=== PATIENT | female | born 1955 | race African-American/Black ===

== ENCOUNTER → 2016-12-26 | Outpatient (CLI) | payer OTHER ==
--- NOTE | 2016-12-26 13:23 | US ---
EXAMINATION TYPE: US transvaginal DATE OF EXAM: 12/26/2016 COMPARISON: NONE CLINICAL HISTORY: N84.1 CERVICAL POLYP. Patient is unaware of reason for TV US today. Patient stated LMP one year ago, prior cervical surgery years ago; TECHNIQUE: Transvaginal (TV) Date of LMP: one year ago. EXAM MEASUREMENTS: Uterus: 6.3 x7.8 x 4.3cm cm Endometrial Stripe: 0.7? cm Right Ovary: 1.7 x 1.0 x 0.6 cm Left Ovary: 2.7 x 1.0 x 0.9 cm 1. Uterus: Retroverted; couple of Nabothian cysts in CX and = 0.7 x 0.6 x 0.5cm; multiple uterine fi broids and too numerous to count with multiple appearing as subserosal. 2. Endometrium: thickness is wnl post menopause 3. Right Ovary: small follicles; multiple hyperechoic foci (calcifications) at periphery 4. Left Ovary: small follicles 5. Bilateral Adnexa: wnl 6. Posterior cul-de-sac: small amount of free fluid in cul de sac = 0.9 x 1.7 x 0.8cm. Uterus is retroverted in shape with markedly heterogeneous appearance and lobulated contour. Nabothia n cysts are seen in the cervix. Multiple fibroids are suspected. Endometrium is not well visualized o n images saved due to marked heterogeneity. Tiny amount free fluid is seen in pelvis before scanning left ovary. Ovaries are small in size consistent with post menopausal age IMPRESSION: Small amount of free fluid is seen in pelvic cul-de-sac. Heterogeneous lobulated prominen t uterus is felt most likely product of multiple fibroids.
== END | disposition home or self-care (01) ==
LOC: RADUSWWP 10:29
PROVIDERS: ATTEND Obstetrics & Gynecology
DX: N84.1 Polyp of cervix uteri (principal)
CPT/HCPCS: 76830

== ENCOUNTER → 2017-01-21 | Outpatient (CLI) | payer SELFPAY ==
--- NOTE | 2017-01-21 13:01 | MM ---
Reason for exam: additional evaluation requested from abnormal screening. Last mammogram was performed less than 1 month ago. History: Patient is postmenopausal. Family history of breast cancer in mother at age 70. Physical Findings: Nurse Summary: 0.5cm nodule in the right breast at 12 o'clock (nurse kp). MG Work Up Mamm w CAD BILAT Bilateral spot compression CC, spot compression MLO, and LM view(s) were taken. Prior study comparison: January 15, 2017, bilateral MG screening mammo w CAD. The breast tissue is heterogeneously dense. This may lower the sensitivity of mammography. The previously described bilateral focal asymmetry and left asymmetries persist on additional views. Ultrasound will be performed. These results were verbally communicated with the patient and result sheet given to the patient on 01/21/17. ASSESSMENT: Incomplete: need additional imaging evaluation, BI-RAD 0 RECOMMENDATION: Ultrasound of both breasts.
--- NOTE | 2017-01-21 13:07 | USB ---
Reason for exam: additional evaluation requested from abnormal screening. History: Patient is postmenopausal. Family history of breast cancer in mother at age 70. US Breast Workup Limited MASSIEL Right breast ultrasound demonstrates a 0.7 x 0.3 x 0.5cm oval, hypoechoic lesion at 11 o'clock for which a biopsy is recommended, a 0.3 x 0.4 x 0.4cm oval lesion too small to characterize at 10 o'clock and a 1.1 x 0.3 x 1.1cm oval, mixed lesion at 9 o'clock. Left breast ultrasound includes all four quadrants, the retroareolar region and axilla. Finding demonstrates a 0.9 x 0.3 x 0.6cm oval, mixed lesion at 2 o'clock, a 0.4 x 0.3 x 0.5cm oval lesion too small to characterize at 3 o'clock, anechoic with well defined post wall and increased through transmission, a 1.0 x 0.4 x 0.9cm oval, hypoechoic lesion at 6 o'clock for which a biopsy is recommended and a 0.6 x 0.3 x 0.5cm cystic, benign lesion at 11 o'clock. These results were verbally communicated with the patient and result sheet given to the patient on 01/21/17. ASSESSMENT: Suspicious, BI-RAD 4 RECOMMENDATION: Ultrasound core biopsy of both breasts. (Recommend biopsy of manufacturers service representative bilateral masses with recommendation of remaining masses on rad pathology correlation) (x 2) Called Dr. Denson with mammographic findings and has scheduled an appointment for the patient for 01/22/17 at 1:[address] Judd. PRELIMINARY REPORT CALLED AND FAXED TO DR. JUDD ON 01/21/17.
== END | disposition home or self-care (01) ==
LOC: RADMAMWWP 09:50
PROVIDERS: ATTEND Obstetrics & Gynecology
DX: R92.8 Other abnormal and inconclusive findings on diagnostic imaging of breast (principal)
CPT/HCPCS: 76642; G0204

== ENCOUNTER → 2017-02-13 | Outpatient (CLI) | payer OTHER ==
--- NOTE | 2017-02-13 16:37 | CT ---
EXAMINATION TYPE: CT brain wo/w con DATE OF EXAM: 02/13/2017 COMPARISON: Unavailable HISTORY: Nontraumatic Intracranial Hemorrhage. 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 CONTRAST: CT scan of the head is performed with IV Contrast, patient injected with 100 mL of Omnipaque 300. FINDINGS: There is a right frontal craniotomy with ventricular shunt tubing which extends to the level of the t hird ventricle abutting the left lateral wall and coursing from the right. Encephalomalacia present i n the left frontal lobe. Extra-axial phenomenon the frontal horn of the left lateral ventricle greate r than right, some encephalomalacia also present in the right frontal lobe. [place] is present over the right parietal location. Craniotomies noted in the left frontal region laterally as well as an a dditional right frontal craniotomy. There is extensive streak artifact due to aneurysm clipping at th e supraclinoid left internal carotid artery location, cerebral vascular calcifications are present. V ertebrobasilar system, internal carotid arteries show enhancement. No evident aneurysm on the standar d contrast enhanced CT. The left and right parietal regions posteriorly shows some small areas of encephalomalacia. There is minimal amount of calcification along the dura at these locations. IMPRESSION: Postop, postprocedural changes as described with areas of encephalomalacia. If comparison CT is available) addendum report can be issued.
== END | disposition home or self-care (01) ==
LOC: RADCTMAIN 15:01
PROVIDERS: ATTEND Psychiatry & Neurology Neurology
DX: G93.89 Other specified disorders of brain (principal); Z98.890 Other specified postprocedural states
CPT/HCPCS: 70470; Q9967

== ENCOUNTER 2017-05-17 14:01 | Inpatient (IN) | payer MEDICAID, OTHER ==
--- NOTE | 2017-05-17 15:04 | ED ---
Psych HPI - General Chief Complaint: Psychiatric Symptoms Stated Complaint: Mental Health Eval Time Seen by Provider: 05/17/17 14:23 Source: patient Mode of arrival: ambulatory - History of Present Illness Initial Comments: 31 years old female complaining about hearing voices as she spent think about harming herself for the last 2 days she said she thought about cutting her wrist Family preventive him from doing the CT denies any alcohol or street drugs she does see psychologist pretty regularly last time she seen her psychologist there was one month ago she lost her son after tragic incidents 6 years ago which she said she still said it feels like it was yesterday. Denies any medical complaints review of system is unremarkable - Related Data Home Medications Medication Instructions Recorded Confirmed Atorvastatin [Lipitor] 80 mg PO HS 05/17/17 05/17/17 Hydrochlorothiazide [Hydrodiuril] 25 mg PO DAILY 05/17/17 05/17/17 Lisinopril [Zestril] 20 mg PO DAILY 05/17/17 05/17/17 Phenytoin Sodium Extended 100 mg PO TID 05/17/17 05/17/17 [Dilantin] Allergies Allergy/AdvReac Type Severity Reaction Status Date / Time No Known Allergies Allergy Verified 05/17/17 14:05 Review of Systems ROS Statement: Those systems with pertinent positive or pertinent negative responses have been documented in the HPI. ROS Other: All systems not noted in ROS Statement are negative. Past Medical History Past Medical History: Hypertension, Seizure Disorder History of Any Multi-Drug Resistant Organisms: None Reported Past Surgical History: No Surgical Hx Reported Past Psychological History: Depression, Schizophrenia Smoking Status: Never smoker Past Alcohol Use History: None Reported Past Drug Use History: None Reported General Exam - General Exam Comments Initial Comments: General: The patient is awake and alert, in no distress, and does not appear acutely ill. Skin: Skin is warm and dry and no rashes or lesions are noted. Eye: Pupils are equal, round and reactive to light, extra-ocular movements are intact; there is normal conjunctiva bilaterally. Ears, nose, mouth and throat: There are moist mucous membranes and no oral lesions. Neck: The neck is supple, there is no tenderness or JVD. Cardiovascular: There is a regular rate and rhythm. No murmur, rub or gallop is appreciated. Respiratory: To auscultation bilateral, no wheezing no rhonchi no distress respiratory laughlin noticed Gastrointestinal: Soft, non-distended, non-tender abdomen without masses or organomegaly noted. There is no rebound or guarding present. Bowel sounds are unremarkable. Back: There is no tenderness to palpation in the midline. There is no obvious deformity. Musculoskeletal: Normal ROM, no tenderness, There is no pedal edema. There is no calf tenderness or swelling. No cords were appreciated. Neurological: CN II-XII intact, Cranial nerves III through XII are intact. There are no obvious motor or sensory deficits. Coordination appears grossly intact. Speech is normal. Psychiatric: Cooperative, admits to suicidal ideation that she wants to cut her wrist but denies any homicidal ideation Limitations: no limitations Course Vital Signs 05/17/17 05/17/17 14:03 16:19 Temperature 98.0 F Pulse Rate 85 Respiratory 20 16 Rate Blood Pressure 120/77 O2 Sat by Pulse 99 Oximetry He stated no alcohol Her bat was negative will go ahead and consult [facility] Medical Decision Making - Lab Data Lab Results 05/17/17 Range/Units 16:00 Urine Opiates Screen Not Detected (NotDetected) Ur Oxycodone Screen Not Detected (NotDetected) Urine Methadone Screen Not Detected (NotDetected) Ur Propoxyphene Screen Not Detected (NotDetected) Ur Barbiturates Screen Not Detected (NotDetected) U Tricyclic Antidepress Not Detected (NotDetected) Ur Phencyclidine Scrn Not Detected (NotDetected) Ur Amphetamines Screen Not Detected (NotDetected) U Methamphetamines Scrn Not Detected (NotDetected) U Benzodiazepines Scrn Not Detected (NotDetected) Urine Cocaine Screen Not Detected (NotDetected) U Marijuana (THC) Screen Not Detected (NotDetected) Disposition Clinical Impression: Suicidal ideation Disposition: ADMITTED IP TO THIS HOSP Condition: Good
[2017-05-17 16:55] LABS: Amphetamine Screen,Urine Not Detected (NotDetected); Barbiturate Screen,Urine Not Detected (NotDetected); Benzodiazepines Screen,Urine Not Detected (NotDetected); Cocaine Screen,Urine Not Detected (NotDetected); Methadone Screen, Urine Not Detected (NotDetected); Opiate Screen,Urine Not Detected (NotDetected); Oxycodone Screen, Urine Not Detected (NotDetected); Phencyclidine Screen,Urine Not Detected (NotDetected); Tricyclic Antidepressant,Urine Not Detected (NotDetected); Urn Cannabinoid Scrn Not Detected (NotDetected)
[2017-05-17] MEDS ORDERED: ACETAMINOPHEN TAB 325 MG TAB PO PRN (20:27)
[2017-05-17] MEDS ORDERED: LORazepam 1 MG TAB PO PRN (20:27)
[2017-05-17] MEDS ORDERED: MAGNESIUM HYDROXIDE 2,400 MG/10 ML CUP PO PRN (20:27)
[2017-05-17] MEDS ORDERED: MAG HYDROX/AL HYDROX/SIMETH 30 ML CUP PO PRN (20:27)
[2017-05-17] MEDS: PHENYTOIN SODIUM EXTENDED 100 MG CAP PO SCH (20:56)
[2017-05-17] MEDS: ATORVASTATIN 80 MG TAB PO SCH (20:56)
[2017-05-17] MEDS ORDERED: ZOLPIDEM 5 MG TAB PO PRN (21:00)
--- NOTE | 2017-05-17 21:09 | P.MDCNMH ---
History of Present Illness H&P Date: 05/17/17 Chief Complaint: Hallucinations 61 years old female presented to the emergency department complaining about hearing voices. She is not sure what the voices are saying to her. She denied having any suicidal ideation but did admit to have homicidal ideations towards her sister. Because of that she tries to avoid socializing with her. Patient admitted that she has been more depressed lately. She never had hallucinations in the past. Never attempted suicide. She attributes these hallucinations to the memory of her son who was killed with a gunshot. Patient also complained that she has not been sleeping lately. She told the emergency room physician that she was thinking about harming herself for the last 2 days, she said she thought about cutting her wrist. She denied any recent illness, no chest pain or shortness of breath, no fevers or chills, no abdominal pain, no nausea or vomiting, no diarrhea, no urinary symptoms. Review of Systems 12 point review of system performed, negative except hpi. Past Medical History Past Medical History: Hypertension, Seizure Disorder Additional Past Medical History / Comment(s): History of brain aneurysm status post shunt placement History of Any Multi-Drug Resistant Organisms: None Reported Past Surgical History: No Surgical Hx Reported Past Psychological History: Depression, Schizophrenia Smoking Status: Never smoker Past Alcohol Use History: None Reported Past Drug Use History: None Reported Medications and Allergies Home Medications Medication Instructions Recorded Confirmed Type Atorvastatin [Lipitor] 80 mg PO HS 05/17/17 05/17/17 History Hydrochlorothiazide [Hydrodiuril] 25 mg PO DAILY 05/17/17 05/17/17 History Lisinopril [Zestril] 20 mg PO DAILY 05/17/17 05/17/17 History Phenytoin Sodium Extended 100 mg PO TID 05/17/17 05/17/17 History [Dilantin] Allergies Allergy/AdvReac Type Severity Reaction Status Date / Time No Known Allergies Allergy Verified 05/17/17 14:05 Physical Exam Vitals: Vital Signs Temp Pulse Resp BP Pulse Ox 05/17/17 17:47 98.6 F 67 18 165/72 97 05/17/17 16:19 16 05/17/17 14:03 98.0 F 85 20 120/77 99 Intake and Output 05/17/17 05/17/17 05/17/17 06:59 14:59 22:59 Other: Weight 63.503 kg Constitutional: No acute distress, conversant, pleasant Eyes:Anicteric sclerae, moist conjunctiva, no lid-lag, PERRLA, ENMT: Oropharynx clear, no erythema, exudates Neck: Supple, FROM, no masses, or JVD, No carotid bruits, No thyromegaly Lungs: Clear to auscultation, Clear to percussion, Normal respiratory effort, no accessory muscle use Cardiovascular: Heart regular in rate and rhythm, No murmurs, gallops, or rubs, No peripheral edema Abdominal: Soft, Nontender, no guarding, rebound or rigidity, Normoactive bowel sounds, No hepatomegaly, No splenomegaly, No palpable mass Skin: Normal temperature, tone, texture, turgor, no induration, No subcutaneous nodules, No rash, lesions, No ulcers Extremities: No digital cyanosis, No clubbing, Pedal pulses intact and symmetrical, Radial pulses intact and symmetrical, No calf tenderness Psychiatric: Alert and oriented to person, place and time Neuro: Muscles Strength 5/5 in all 4 extremities, Sensation to light touch grossly present throughout, Cranial nerves II-XII grossly intact, no focal sensory deficits Cranial Nerve Examination - Cranial Nerves Cranial Nerve II- Optic: Intact Cranial Nerve III- Oculomotor: Intact Cranial Nerve IV- Trochlear: Intact Cranial Nerve V- Trigeminal: Intact Cranial Nerve - Abducens: Intact Cranial Nerve VII- Facial: Intact Cranial Nerve VIII- Auditory: Intact Cranial Nerve IX- Glossopharyngeal: Intact Cranial Nerve X- Vagus: Intact Cranial Nerve XI- Accessory: Intact Cranial Nerve XII- Hypoglossal: Intact Assessment and Plan Plan: #1 New-onset auditory hallucinations/depression/schizophrenia Management per psychiatry #2 Smoking Counseled to quit Nicotine patch #3 Essential hypertension Continue lisinopril and HCTZ Check CBC, CMP, TSH, lipid profile #4 History of brain aneurysm status post shunt placement Continue Dilantin
--- NOTE | 2017-05-18 00:33 | P.HP ---
Psychiatric H&P - . H&P Date: 05/18/17 History & Physical: Allergies Allergy/AdvReac Type Severity Reaction Status Date / Time No Known Allergies Allergy Verified 05/17/17 14:05 Vital Signs Temp 98.6 F 05/17/17 17:47 Pulse 67 05/17/17 17:47 Resp 18 05/17/17 17:47 BP 165/72 05/17/17 17:47 Pulse Ox 97 05/17/17 17:47 Intake & Output 05/17/17 05/17/17 05/18/17 06:59 18:59 06:59 Weight 63.503 kg Laboratory Last Values Urine Opiates Screen Not Detected (NotDetected) 05/17/17 16:00 Ur Oxycodone Screen Not Detected (NotDetected) 05/17/17 16:00 Urine Methadone Screen Not Detected (NotDetected) 05/17/17 16:00 Ur Propoxyphene Screen Not Detected (NotDetected) 05/17/17 16:00 Ur Barbiturates Screen Not Detected (NotDetected) 05/17/17 16:00 U Tricyclic Antidepress Not Detected (NotDetected) 05/17/17 16:00 Ur Phencyclidine Scrn Not Detected (NotDetected) 05/17/17 16:00 Ur Amphetamines Screen Not Detected (NotDetected) 05/17/17 16:00 U Methamphetamines Scrn Not Detected (NotDetected) 05/17/17 16:00 U Benzodiazepines Scrn Not Detected (NotDetected) 05/17/17 16:00 Urine Cocaine Screen Not Detected (NotDetected) 05/17/17 16:00 U Marijuana (THC) Screen Not Detected (NotDetected) 05/17/17 16:00 05/18/17 15:14 Identifying Information Patient is 61 year old woman. She is single. She says she is currently living with her daughter temporarily. She stated she wants help in finding her a place like senior apartment. Her source of income is social security. Cheif complaint Hearing voices and not being able to sleep over the past one month. History of presenting illness Patient reports hearing voices telling her to man, man. She denies visual hallucinations. She reports feeling paranoid especially when it gets dark. She is paranoid that some one might come and get her or will follow her. She reports feeling sad about her current situation. She reports feeling sad about the of her son. She says her son got killed six years ago in [place], but states it feels like as it had happened yesterday.She states she is very close to her son and still grieving the of her son. She denies current suicidal or homicidal ideations. She says she loves herself and will not do anything to harm herself. Past psychiatric treatment history Patient reports being started on psychiatric medications following her first hospitlaization around the age of 26 years. She reports three psychiatric hopitlizations at [facility] and [facility] on [address]. Her last hospitalization was in . She states most of her hospitalizations were due to stressful relationship and paranoia. She reports being diagnosed with paranaoid schizophrenia. She reports to have recieved outpatient treatment through [facility] in but none since then. She does not know the names of medications she has received. Denies suicidal or homicidal history. Substance use history Denies use of illicit drugs Medical history History of hypertension, seizures, Jam[place] aneurysm with surgical repair 20 years ago at [facility]. Legal history Denies Family history Says her twin sister is also diagnosed with paranoid schizophrenia. Social history Born in [place], [place]. Raised by mother. Denies history of abuse. She reports having two sisters. Graduated from [employer]. Worked in fast food restaurants. Last job was in . Mental status exam Patient is 61 year old woman. She was dressed appropriately. She is pleasant and cooperative. She maintains good eye contact. No psychomotor agitation or retardation noted. Her speech and thought process are goal directed. Her mood is reported as sad and affect constricted. She reports auditory hallucinations and paranoia. No visual hallucinations. She denies current suicidal or homicidal ideations. She is alert and oriented to time, place and person. Her insight and judgment are fair. Assessment Paranoid Schizophrenia Plan She was admitted voluntarily to the inpatient mental health unit through ER. Will start her on seroquel 25mg po qhs for auditory halluciantions and paranoia. Dose to be adjusted depending on response and tolerability. History and physical exam by medicine Routine labs Encourage participation in unit activities and group therapies. Monitor for symptoms and progress Individualized treatment plan development and discharge plan
[2017-05-18 07:23] VITALS: RESP 16
[2017-05-18 08:49] LABS: Basophils % (A) 0 %; Eosinophils # (A) 0.2 k/uL (0-0.7); Eosinophils % (A) 3 %; HCT 44.8 % (34.0-46.0); HGB 14.5 gm/dL (11.4-16.0); Lymphocytes # (A) 2.3 k/uL (1.0-4.8); Lymphocytes % (A) 40 %; MCH 28.3 pg (25.0-35.0); MCHC 32.4 g/dL (31.0-37.0); MCV 87.5 fL (80.0-100.0); Mean Platelet Volume 7.3; Monocytes # (A) 0.3 k/uL (0-1.0); Monocytes % (A) 5 %; Neutrophils # (A) 2.8 k/uL (1.3-7.7); Neutrophils % (A) 49 %; Platelet Count 325 k/uL (150-450); RBC 5.12 m/uL (3.80-5.40); RDW 12.9 % (11.5-15.5); WBC 5.8 k/uL (3.8-10.6)
[2017-05-18] MEDS ORDERED: NICOTINE 14MG/24HR PATCH TRANSDERM SCH (09:00)
[2017-05-18 09:01] LABS: ALT 16 U/L (9-52); AST 20 U/L (14-36); Albumin 4.7 g/dL (3.5-5.0); Alkaline Phosphatase 73 U/L (38-126); Anion Gap 12 mmol/L; Blood Urea Nitrogen 17 mg/dL (7-17); Calcium 10.4 mg/dL (8.4-10.2); Carbon Dioxide 30 mmol/L (22-30); Chloride 98 mmol/L (98-107); Cholesterol 199 mg/dL (<200); Glucose 94 mg/dL (74-99); HDL Cholesterol 56 mg/dL (40-60); LDL Cholesterol,Calculated 125 mg/dL (0-99); Potassium 4.6 mmol/L (3.5-5.1); Sodium 140 mmol/L (137-145); Total Bilirubin 0.7 mg/dL (0.2-1.3); Total Protein 7.9 g/dL (6.3-8.2); Triglycerides 90 mg/dL (<150)
[2017-05-18] MEDS: HYDROCHLOROTHIAZIDE 25 MG TAB PO SCH (10:44)
[2017-05-18] MEDS: PHENYTOIN SODIUM EXTENDED 100 MG CAP PO SCH ×3 (10:44→21:04)
[2017-05-18] MEDS: LISINOPRIL 20 MG TAB PO SCH (10:44)
[2017-05-18 19:50] LABS: Hemoglobin A1C 5.8 % (4.0-6.0)
[2017-05-18] MEDS ORDERED: QUEtiapine 25 MG TAB PO SCH (21:00)
[2017-05-18] MEDS: ATORVASTATIN 80 MG TAB PO SCH (21:04)
[2017-05-18] MEDS: NICOTINE 21MG/24HR PATCH TRANSDERM SCH (21:50)
[2017-05-19] MEDS: PHENYTOIN SODIUM EXTENDED 100 MG CAP PO SCH ×3 (09:29→21:59)
[2017-05-19] MEDS: NICOTINE 21MG/24HR PATCH TRANSDERM SCH (09:29)
[2017-05-19] MEDS: LISINOPRIL 20 MG TAB PO SCH (09:29)
[2017-05-19] MEDS: HYDROCHLOROTHIAZIDE 25 MG TAB PO SCH (09:29)
--- NOTE | 2017-05-19 13:49 | P.PN ---
Progress Note - Text Progress Note Date: 05/19/17 Interval History: Patient is a 61-year-old female who was admitted due to auditory hallucinations and paranoia. Patient reports today that she continues to hear voices but only hearing her name being called out. She denies that she is feeling paranoid or suspicious of people. Patient states that she dislikes her daughter's partner, she states that she's been living with her daughter for the last 88-9 months having lived with her sister before that and an aunt prior to that. Patient states that her daughter's partner is there only on weekends but that the 2 of them do not get along. She denies making any threats to this person. Patient states that she wants to get her own place. She reports having a brain aneurysm in 1996 that was in the right frontal area and states she has difficulty with her memory since that time. Patient reports that she slept fairly well last evening. Mental Status: Appearance/Attitude: Patient is appropriately dressed, makes intermittent eye contact and is cooperative. Behavior: Patient does not display any psychomotor agitation or retardation. Speech/Language: Patient's speech is spontaneous and normal volume and rhythm and she is coherent. Thought Process: Patient is goal-directed, no evidence of loose association or flight of ideas and she is not circumstantial or tangential. Thought Content: She reports continued auditory hallucinations no visual hallucinations and states that she is not feeling suspicious or paranoid. She denies making threats toward her daughter's partner. Patient states that she is sleeping and eating well. She reports that she needs housing and wants to live on her own, the patient was living with an aunt and a sister prior to her moving in with her daughter 8-9 months ago. Suicidal/Homicidal Ideation: Patient denies any current suicidal or homicidal ideation Sensorium/Cognition: Patient is alert and oriented to person, place, and time and she states that she has difficulties with her memory since the aneurysm Mood/Affect: Patient's mood is slightly irritable and her affect is slightly blunted Insight/Judgment: Patient's insight and judgment are fair Assessment: Patient was admitted with a history of psychotic symptoms a number of years ago but no treatment for at least the last 20 years. Patient has recently moved in with her daughter and is not getting along with her daughter' s partner who lives with them on the weekends. Patient is reported to have made threats toward this person during the weekend to staff. Patient states that she continues to hear voices but denies any paranoid ideation and denies making threats to her daughter's partner. Patient is status post brain aneurysm in 1996 in the right frontal area and states she has memory difficulty secondary to this. Plan: We'll increase patient's Seroquel to 50 mg at bedtime and continue to adjust the dose to target her psychotic symptoms. Patient's discharge housing maintenance up in the air as the patient does not want to return to live with her daughter. Patient requires hospitalization to further stabilize her psychotic symptoms. A duty to warn will be done for the daughter's partner.
[2017-05-19 15:08] LABS: Appearance,Urine Clear (Clear); Bilirubin,Urine Negative (Negative); Blood,Urine Negative (Negative); Color,Urine Yellow; Glucose,Urine (UA) Negative (Negative); Ketones,Urine Negative (Negative); Leukocyte Esterase,Urine Negative (Negative); Nitrite,Urine Negative (Negative); Protein,Urine Negative (Negative); Urobilinogen,Urine <2.0 mg/dL (<2.0)
[2017-05-19 15:21] LABS: Amphetamine Screen,Urine Not Detected (NotDetected); Barbiturate Screen,Urine Detected (NotDetected); Benzodiazepines Screen,Urine Detected (NotDetected); Cocaine Screen,Urine Not Detected (NotDetected); Methadone Screen, Urine Not Detected (NotDetected); Opiate Screen,Urine Not Detected (NotDetected); Oxycodone Screen, Urine Not Detected (NotDetected); Phencyclidine Screen,Urine Not Detected (NotDetected); Tricyclic Antidepressant,Urine Not Detected (NotDetected); Urn Cannabinoid Scrn Not Detected (NotDetected)
[2017-05-19] MEDS: ATORVASTATIN 80 MG TAB PO SCH (21:59)
[2017-05-19] MEDS: QUEtiapine 50 MG TAB PO SCH (21:59)
[2017-05-20] MEDS: NICOTINE 21MG/24HR PATCH TRANSDERM SCH (09:09)
[2017-05-20] MEDS: PHENYTOIN SODIUM EXTENDED 100 MG CAP PO SCH ×3 (09:09→20:55)
[2017-05-20] MEDS: LISINOPRIL 20 MG TAB PO SCH (09:09)
[2017-05-20] MEDS: HYDROCHLOROTHIAZIDE 25 MG TAB PO SCH (09:09)
[2017-05-20 10:05] VITALS: BMI 24.0
--- NOTE | 2017-05-20 12:21 | P.PN ---
Progress Note - Text Progress Note Date: 05/20/17 Interval History: Patient is a 61-year-old female who was seen today and reports that she is no longer hearing voices or feeling suspicious and paranoid. She states that she is not having trouble deciphering what is reality and what is not. She states that she is been given a list of places to look for a place to go to live that she does not want to return to live with her daughter. She states she wants to stay in the area and would even consider going to a [facility]. She states that she receives Social Security disability. Patient states that she slept well last evening and is no longer having any suicidal thoughts and denied any homicidal thoughts. Mental Status: Appearance/Attitude: Patient is appropriately dressed, makes good eye contact and is cooperative. Behavior: Patient does not display any psychomotor agitation or retardation. Speech/Language: Patient's speech is spontaneous and of normal volume and rhythm and she is coherent. Thought Process: Patient is goal-directed there is no evidence of loose association or flight of ideas. Thought Content: Patient denies auditory or visual hallucinations and no delusions or paranoid ideation were elicited. Patient states that she is sleeping and eating well. She reports that she is not having thoughts of suicide nor she thinking of hurting anyone else. Patient discussed her wish to move out and live on her own. Suicidal/Homicidal Ideation: Patient denies any current suicidal or homicidal ideation. Sensorium/Cognition: Patient is alert and oriented to person, place, and time and she reports difficulties with her memory secondary to her brain aneurysm. Mood/Affect: Patient's mood is stable at her affect is appropriate Insight/Judgment: Patient's insight and judgment are fair. Assessment: Patient reports she is feeling better on the medication, no longer hearing voices or feeling paranoid and that she is no longer feeling suicidal. She voiced no homicidal ideation. Patient states that she is sleeping well. She has been attending groups and activities and has been participating. She states that she would like to live on her own when discharged and has a list of contact numbers. She reports no side effects from the medication. Plan: Patient will continue on Seroquel 50 mg at bedtime to target her psychotic symptoms. Patient and I discussed possible discharge later this week and she was encouraged to make phone calls to try to find a place for her to live.
[2017-05-20] MEDS: ATORVASTATIN 80 MG TAB PO SCH (20:54)
[2017-05-20] MEDS: QUEtiapine 50 MG TAB PO SCH (20:54)
[2017-05-21 06:50] VITALS: BP 103/67; PULSE 69; TEMP 98.2
[2017-05-21] MEDS: NICOTINE 21MG/24HR PATCH TRANSDERM SCH (09:18)
[2017-05-21] MEDS: LISINOPRIL 20 MG TAB PO SCH (09:19)
[2017-05-21] MEDS: HYDROCHLOROTHIAZIDE 25 MG TAB PO SCH (09:19)
[2017-05-21] MEDS: PHENYTOIN SODIUM EXTENDED 100 MG CAP PO SCH (09:20)
--- NOTE | 2017-05-21 11:42 | P.DS ---
Providers Date of admission: 05/17/17 17:25 Expected date of discharge: 05/21/17 Attending physician: Tiara Jessica MD Consults: 05/17/17 20:27 Consult Physician Routine Consulting Provider: Dana Cole Consult Reason/Comments: medical management Do you want consulting provider notified?: Already Contacted Primary care physician: [facility] Course: Discharge Diagnosis: Schizophrenia Reason for Admission: Patient is a 61-year-old female who presented to the emergency room with complaints of hearing voices and not being able to sleep. Patient also reported feeling paranoid, feeling that people were trying to hurt her. Patient also had been making threats to her daughter's partner. Patient states that she and her daughter's friend do not get along. Patient has a past history of hospitalization for similar complaints but her last hospitalization was in the the patient has not been taking any psychotropic medications since that time. Patient recently moved to live with her daughter and had been living in the [place] area prior to that with the sister and an aunt. Patient was having difficulty sleeping due to her paranoid ideation at home. Hospital Course: Patient was admitted on a voluntary basis, placed on routine precautions and group and activity therapy were ordered. Patient had routine laboratory studies and medical consultation. Patient was continued on Lipitor hydrochlorothiazide, Zestril and Dilantin for her medical problems. Patient had a brain aneurysm in the right frontal area in the past and reported difficulties with her memory. Patient was placed on Seroquel 25 mg which was titrated to a dose of 50 mg at bedtime. Patient reported that she was sleeping well and was no longer hearing voices or feeling paranoid. Patient was able to discuss wanting to move out on her own if she could find a place but was okay with returning to live with her daughter. She stated that she would just not interact with her daughter's partner when she visited on the weekends. Patient reported no further paranoid ideation and she was attending groups and activities and participating. Patient's Seroquel dose was increased to 50 mg and she reported no side effects. Patient was sleeping and eating well. Patient felt the medication had been beneficial. Patient felt she was ready to return home. Patient had made threats against the daughter's partner and a duty to warn was completed. Allergies tide Allergy (Uncoded 05/18/17 09:25) Rash/Hives Laboratory Last Values WBC 5.8 k/uL (3.8-10.6) 05/18/17 08:21 RBC 5.12 m/uL (3.80-5.40) 05/18/17 08:21 Hgb 14.5 gm/dL (11.4-16.0) 05/18/17 08:21 Hct 44.8 % (34.0-46.0) 05/18/17 08:21 MCV 87.5 fL (80.0-100.0) 05/18/17 08:21 MCH 28.3 pg (25.0-35.0) 05/18/17 08:21 MCHC 32.4 g/dL (31.0-37.0) 05/18/17 08:21 RDW 12.9 % (11.5-15.5) 05/18/17 08:21 Plt Count 325 k/uL (150-450) 05/18/17 08:21 Neutrophils % 49 % 05/18/17 08:21 Lymphocytes % 40 % 05/18/17 08:21 Monocytes % 5 % 05/18/17 08:21 Eosinophils % 3 % 05/18/17 08:21 Basophils % 0 % 05/18/17 08:21 Neutrophils # 2.8 k/uL (1.3-7.7) 05/18/17 08:21 Lymphocytes # 2.3 k/uL (1.0-4.8) 05/18/17 08:21 Monocytes # 0.3 k/uL (0-1.0) 05/18/17 08:21 Eosinophils # 0.2 k/uL (0-0.7) 05/18/17 08:21 Basophils # 0.0 k/uL (0-0.2) 05/18/17 08:21 Sodium 140 mmol/L (137-145) 05/18/17 08:21 Potassium 4.6 mmol/L (3.5-5.1) 05/18/17 08:21 Chloride 98 mmol/L (98-107) 05/18/17 08:21 Carbon Dioxide 30 mmol/L (22-30) 05/18/17 08:21 Anion Gap 12 mmol/L 05/18/17 08:21 BUN 17 mg/dL (7-17) 05/18/17 08:21 Creatinine 0.72 mg/dL (0.52-1.04) 05/18/17 08:21 Est GFR (CKD-EPI)AfAm >90 (>60 ml/min/1.73 sqM) 05/18/17 08:21 Est GFR (CKD-EPI)NonAf >90 (>60 ml/min/1.73 sqM) 05/18/17 08:21 Glucose 94 mg/dL (74-99) 05/18/17 08:[address] Glu mg/dL 120 05/18/17 08:21 Hemoglobin A1c 5.8 % (4.0-6.0) 05/18/17 08:21 Calcium 10.4 mg/dL (8.4-10.2) H 05/18/17 08:21 Total Bilirubin 0.7 mg/dL (0.2-1.3) 05/18/17 08:21 AST 20 U/L (14-36) 05/18/17 08:21 ALT 16 U/L (9-52) 05/18/17 08:21 Alkaline Phosphatase 73 U/L (38-126) 05/18/17 08:21 Total Protein 7.9 g/dL (6.3-8.2) 05/18/17 08:21 Albumin 4.7 g/dL (3.5-5.0) 05/18/17 08:21 Triglycerides 90 mg/dL (<150) 05/18/17 08:21 Cholesterol 199 mg/dL (<200) 05/18/17 08:21 LDL Cholesterol, Calc 125 mg/dL (0-99) H 05/18/17 08:21 HDL Cholesterol 56 mg/dL (40-60) 05/18/17 08:21 TSH 0.993 mIU/L (0.465-4.680) 05/18/17 08:21 Urine Color Yellow 05/19/17 14:57 Urine Appearance Clear (Clear) 05/19/17 14:57 Urine pH 5.0 (5.0-8.0) 05/19/17 14:57 Ur Specific [place] 1.010 (1.001-1.035) 05/19/17 14:57 Urine Protein Negative (Negative) 05/19/17 14:57 Urine Glucose (UA) Negative (Negative) 05/19/17 14:57 Urine Ketones Negative (Negative) 05/19/17 14:57 Urine Blood Negative (Negative) 05/19/17 14:57 Urine Nitrite Negative (Negative) 05/19/17 14:57 Urine Bilirubin Negative (Negative) 05/19/17 14:57 Urine Urobilinogen <2.0 mg/dL (<2.0) 05/19/17 14:57 Ur Leukocyte Esterase Negative (Negative) 05/19/17 14:57 Urine Opiates Screen Not Detected (NotDetected) 05/19/17 14:57 Ur Oxycodone Screen Not Detected (NotDetected) 05/19/17 14:57 Urine Methadone Screen Not Detected (NotDetected) 05/19/17 14:57 Ur Propoxyphene Screen Not Detected (NotDetected) 05/19/17 14:57 Ur Barbiturates Screen Detected (NotDetected) H 05/19/17 14:57 U Tricyclic Antidepress Not Detected (NotDetected) 05/19/17 14:57 Ur Phencyclidine Scrn Not Detected (NotDetected) 05/19/17 14:57 Ur Amphetamines Screen Not Detected (NotDetected) 05/19/17 14:57 U Methamphetamines Scrn Not Detected (NotDetected) 05/19/17 14:57 U Benzodiazepines Scrn Detected (NotDetected) H 05/19/17 14:57 Urine Cocaine Screen Not Detected (NotDetected) 05/19/17 14:57 U Marijuana (THC) Screen Not Detected (NotDetected) 05/19/17 14:57 Discharge Mental Status: Appearance/Attitude: Patient was appropriately dressed , makes good eye contact and is cooperative. Behavior: Patient did not display any psychomotor agitation or retardation. Speech/Language: Patient's speech is spontaneous and normal volume and rhythm and she is coherent. Thought Process: Patient is goal-directed and there is no evidence of circumstantial or tangential thought and no loose association or flight of ideas. Thought Content: Patient denies any auditory or visual hallucinations and no delusions or paranoid ideation were elicited. Patient reported that she was no longer feeling fearful that people were trying to hurt her and did not voice any paranoid thoughts. She stated that she had been sleeping well and her appetite was good. She reported feeling comfortable returning to live with her daughter and discussed just not speaking with in avoiding her daughter's partner when she visits on the weekends. She stated that she could also go and visit with her brother. Suicidal/Homicidal Ideation: Patient denied any current suicidal or homicidal ideation. Sensorium/Cognition: Patient was alert and oriented to person, place, and time and her recent and remote memory were not formally tested, patient continues to report difficulty with her recent memory. Mood/Affect: Patient's mood is pleasant and her affect was appropriate. Insight/Judgment: Patient's insight and judgment are fair Risk Assessment: Patient's risk for self harm is low should patient continue on medication and outpatient treatment. Discharge Plan: Patient will return to live with her daughter, she will continue on her medications for her medical problems. She'll continue on Seroquel 50 mg at bedtime. Patient will follow up at [facility]. Patient will follow up with her primary care physician regarding her medical problems. Patient Condition at Discharge: Stable Plan - Discharge Summary New Discharge Prescriptions: New QUEtiapine [SEROquel] 50 mg PO HS #14 tab Continue Atorvastatin [Lipitor] 80 mg PO HS #14 tab Hydrochlorothiazide [Hydrodiuril] 25 mg PO DAILY #14 tab Lisinopril [Zestril] 20 mg PO DAILY #14 tab Phenytoin Sodium Extended [Dilantin] 100 mg PO TID #42 cap Discharge Medication List Atorvastatin [Lipitor] 80 mg PO HS #14 tab 05/21/17 [Rx] Hydrochlorothiazide [Hydrodiuril] 25 mg PO DAILY #14 tab 05/21/17 [Rx] Lisinopril [Zestril] 20 mg PO DAILY #14 tab 05/21/17 [Rx] Phenytoin Sodium Extended [Dilantin] 100 mg PO TID #42 cap 05/21/17 [Rx] QUEtiapine [SEROquel] 50 mg PO HS #14 tab 05/21/17 [Rx] Follow up Appointment(s)/Referral(s): Jimena Azul MD [Primary Care Provider] - As Needed Patient Instructions/Handouts: Depression (GEN), Suicide Prevention for Adults (GEN) Activity/Diet/Wound Care/Special Instructions: Activity and diet as tolerated. Avoid the use of street drugs and alcohol. Take medications as prescribed. When you are in need of refills on your medications please contact your medical provider and/or outpatient psychiatrist to have this done. Please go to scheduled outpatient appointment for aftercare treatment. If symptoms return or become worse call the crisis line at and/or go to the nearest emergency room for an evaluation. Discharge Disposition: HOME SELF-CARE
== END 2017-05-21 12:25 | disposition home or self-care (01) | DRG 885 ==
LOC: EC 14:01 → 3MHU 17:25
PROVIDERS: ADMIT Psychiatry & Neurology Psychiatry; ATTEND Psychiatry & Neurology Psychiatry
DX: F20.0 Paranoid schizophrenia (principal); R45.851 Suicidal ideations; R45.850 Homicidal ideations; G40.909 Epilepsy, unspecified, not intractable, without status epilepticus; F32.9 Major depressive disorder, single episode, unspecified; I10 Essential (primary) hypertension; Z79.899 Other long term (current) drug therapy; Z81.8 Family history of other mental and behavioral disorders; Z98.890 Other specified postprocedural states; Z71.6 Tobacco abuse counseling
CPT/HCPCS: 80053; 80061; 80306; 81003; 82075; 83036; 84443; 85025; 99285

== ENCOUNTER → 2018-05-15 | Outpatient (CLI) | payer OTHER ==
--- NOTE | 2018-05-15 12:12 | MM ---
Reason for exam: additional evaluation requested from prior study. Last mammogram was performed 1 year and 4 months ago. History: Patient is postmenopausal. Family history of breast cancer in mother at age 70 and breast cancer in maternal aunt. Benign excisional biopsy of the left breast, 2017. 2 benign excisional biopsies of the right breast, 2017. Physical Findings: Nurse did not find any significant physical abnormalities on exam. MG Diagnostic Mammo w CAD MASSIEL Bilateral CC and MLO view(s) were taken. Prior study comparison: January 21, 2017, bilateral MG work up mamm w CAD BILAT. January 15, 2017, bilateral MG screening mammo w CAD. The breast tissue is heterogeneously dense. This may lower the sensitivity of mammography. New biopsy markers bilaterally represent pathologically proven benign etiologies confirmed with [facility]. Mammographically corresponding masses appear stable. These results were verbally communicated with the patient and result sheet given to the patient on 05/15/18. ASSESSMENT: Benign, BI-RAD 2 RECOMMENDATION: Routine screening mammogram of both breasts in 1 year.
== END ==
LOC: RADMAMWWP 10:57
PROVIDERS: ATTEND Family Medicine
DX: R92.8 Other abnormal and inconclusive findings on diagnostic imaging of breast (principal)
CPT/HCPCS: 77066

== ENCOUNTER 2019-04-06 17:38 | Emergency (ER) | payer OTHER ==
[2019-04-06 18:54] VITALS: TEMP 98.3
[2019-04-06] MEDS ORDERED: MORPHINE SULFATE 4 MG/ML SYRINGE IV STA ×2 (19:39→23:07)
[2019-04-06] MEDS ORDERED: SODIUM CHLORIDE 0.9% 1,000 ML IV STA (19:39)
[2019-04-06 20:11] LABS: Basophils % (A) 0 %; Eosinophils # (A) 0.3 k/uL (0-0.7); Eosinophils % (A) 2 %; HCT 40.5 % (34.0-46.0); Lymphocytes # (A) 0.9 k/uL (1.0-4.8); Lymphocytes % (A) 6 %; MCH 28.2 pg (25.0-35.0); MCHC 32.2 g/dL (31.0-37.0); MCV 87.7 fL (80.0-100.0); Mean Platelet Volume 7.1; Monocytes # (A) 0.2 k/uL (0-1.0); Monocytes % (A) 1 %; Neutrophils # (A) 13.5 k/uL (1.3-7.7); Neutrophils % (A) 90 %; Platelet Count 272 k/uL (150-450); RBC 4.62 m/uL (3.80-5.40); RDW 13.7 % (11.5-15.5)
[2019-04-06 20:20] LABS: ALT 17 U/L (4-34); AST 44 U/L (14-36); African American GFR (CKD) >90 (>60 ml/min/1.73 sqM); Albumin 4.3 g/dL (3.5-5.0); Alkaline Phosphatase 103 U/L (38-126); Anion Gap 8 mmol/L; Blood Urea Nitrogen 12 mg/dL (7-17); Calcium 9.6 mg/dL (8.4-10.2); Carbon Dioxide 29 mmol/L (22-30); Chloride 103 mmol/L (98-107); Glucose 118 mg/dL (74-99); Non-African American GFR(CKD) >90 (>60 ml/min/1.73 sqM); Potassium 3.4 mmol/L (3.5-5.1); Sodium 140 mmol/L (137-145); Total Bilirubin 0.4 mg/dL (0.2-1.3); Total Protein 7.4 g/dL (6.3-8.2)
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
[2019-04-06] MEDS ORDERED: DIPH,PERTUS(ACELL)TETVAC-LF 0.5 ML VIAL IM ONE (23:07)
[2019-04-06] MEDS ORDERED: ACET/COD 300 MG/30 MG STARTER PACK 6 TAB BTL PO STA (23:34)
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
[2019-04-06] MEDS ORDERED: POTASSIUM CHLORIDE ER 10 MEQ TAB.ER.PRT PO ONE (23:45)
[2019-04-06 23:52] VITALS: BP 156/97; PULSE 84; RESP 19
== END 2019-04-07 00:19 | disposition home or self-care (01) ==
LOC: EC 17:38
DX: S32.030A Wedge compression fracture of third lumbar vertebra, initial encounter for closed fracture (principal); S10.81XA Abrasion of other specified part of neck, initial encounter; D72.829 Elevated white blood cell count, unspecified; Z91.048 Other nonmedicinal substance allergy status; Z86.69 Personal history of other diseases of the nervous system and sense organs; Z96.89 Presence of other specified functional implants; Z23 Encounter for immunization; V47.5XXA Car driver injured in collision with fixed or stationary object in traffic accident, initial encounter; Y93.89 Activity, other specified; Y92.410 Unspecified street and highway as the place of occurrence of the external cause
CPT/HCPCS: 36415; 80053; 85025; 72125; 70450; 71260; 74177; 90715; 99285; 96374; 96376; 96361; 90471; J2270; Q9967

== ENCOUNTER → 2019-10-13 | Outpatient (CLI) | payer OTHER ==
[2019-10-13 10:46] LABS: HCT 41.8 % (34.0-46.0); MCHC 31.2 g/dL (31.0-37.0); MCV 89.7 fL (80.0-100.0); Mean Platelet Volume 7.5; Platelet Count 291 k/uL (150-450); RBC 4.66 m/uL (3.80-5.40); RDW 13.4 % (11.5-15.5); WBC 5.9 k/uL (3.8-10.6)
[2019-10-13 10:53] LABS: African American GFR (CKD) >90 (>60 ml/min/1.73 sqM); Anion Gap 8 mmol/L; Blood Urea Nitrogen 8 mg/dL (7-17); Calcium 9.8 mg/dL (8.4-10.2); Carbon Dioxide 26 mmol/L (22-30); Chloride 108 mmol/L (98-107); Glucose 73 mg/dL (74-99); Non-African American GFR(CKD) 88 (>60 ml/min/1.73 sqM); Potassium 3.5 mmol/L (3.5-5.1); Sodium 142 mmol/L (137-145)
[2019-10-13 10:57] LABS: Partial Thromboplastin Time 23.2 sec (22.0-30.0)
[2019-10-13 11:07] LABS: Appearance,Urine Cloudy (Clear); Bacteria,Urine Moderate /hpf; Bilirubin,Urine Negative (Negative); Blood,Urine Small (Negative); Color,Urine Yellow; Glucose,Urine (UA) Negative (Negative); Ketones,Urine Negative (Negative); Leukocyte Esterase,Urine Moderate (Negative); Mucus,Urine Few /hpf; Nitrite,Urine Negative (Negative); PH, Urine 5.5 (5.0-8.0); Protein,Urine Trace (Negative); RBC,Urine 3 /hpf (0-5); Specific Gravity,Urine 1.024 (1.001-1.035); Squamous Epithelial Cell,Urine 10 /hpf (0-4); WBC,Urine 5 /hpf (0-5)
--- NOTE | 2019-10-13 20:36 | XR ---
EXAMINATION TYPE: XR chest 2V DATE OF EXAM: 10/13/2019 COMPARISON: None INDICATION: Presurgical evaluation TECHNIQUE: Frontal and lateral views of the chest are obtained. FINDINGS: The heart size is normal. The pulmonary vasculature is normal. The lungs are clear. Catheter is present on the right. IMPRESSION: 1. No acute pulmonary process.
== END | disposition home or self-care (01) ==
LOC: LABWHC1 09:40
PROVIDERS: ATTEND Orthopaedic Surgery Orthopaedic Surgery of the Spine
DX: Z01.818 Encounter for other preprocedural examination (principal); S32.039A Unspecified fracture of third lumbar vertebra, initial encounter for closed fracture
CPT/HCPCS: 36415; 71046; 80048; 81001; 85027; 85610; 85730; 93005

== ENCOUNTER → 2020-03-29 | Outpatient (CLI) | payer OTHER ==
[2020-03-29 10:45] VITALS: BP 139/91; PULSE 62; RESP 16; TEMP 98
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
== END | disposition home or self-care (01) ==
LOC: PNWHC3 10:25
PROVIDERS: ATTEND Hospitalist
DX: S32.019A Unspecified fracture of first lumbar vertebra, initial encounter for closed fracture (principal); M47.816 Spondylosis without myelopathy or radiculopathy, lumbar region; Z79.899 Other long term (current) drug therapy
CPT/HCPCS: 99211

== ENCOUNTER 2020-04-07 06:11 | Day surgery (SDC) | payer OTHER ==
[2020-04-04 15:18] VITALS: BMI 24.9
[2020-04-07] MEDS ORDERED: LACTATED RINGERS 1,000 ML IV SCH (06:19)
[2020-04-07 06:36] VITALS: TEMP 97.1
[2020-04-07] MEDS ORDERED: LIDOCAINE 1% (10MG/ML) FOR IV START INTRADERMA ONE (06:40)
[2020-04-07] MEDS ORDERED: ROPIVACAINE 5MG/ML 20ML VIAL ONE (07:04)
[2020-04-07] MEDS ORDERED: IOPAMIDOL M200 10 ML VIAL ONE (07:04)
[2020-04-07] MEDS ORDERED: MIDAZOLAM 2 MG/2 ML VIAL ONE (07:04)
--- NOTE | 2020-04-07 07:18 | P.PCN ---
Date of Procedure: 04/07/20 Description of Procedure: PREOPERATIVE DIAGNOSIS : Lumbar spondylosis with Facet Arthropathy without myelopathy POSTOPERATIVE DIAGNOSIS: same PROCEDURE: first Diagnostic lumbar medial branch block with fluoroscopy at L2, L3 which covers facet L3-4 ANESTHESIA: Local anesthetic; moderate IV sedation with Versed 1 mg, sedation time 10 min Fluoroscopy was used for the procedure and images were saved in the radiology portion of the chart. Surgeon: Helder Barrios MD PROCEDURE INDICATION: Lumbar back pain without radiculopathy, not responsive to conservative management. PROCEDURE DESCRIPTION: the patient was seen and identified in the preop holding area , risks and benefits and possible complications of the procedure and alternatives were discussed with the patient, and the patient agreed to proceed with the procedure and signed the consent . IV was started , vital signs were monitored during the procedure and fluoroscopy was used to maximize the benefit and accuracy of the needle placement, and sedation was given to decrease patient anxiety. Patient was taken to the procedure room and placed in prone position. The lumbar region was prepped using chlorhexidineX-2. Under strict sterile technique using AP fluoroscopy the bilateral sacral ala were identified and using ipsilateral oblique fluoroscopy ,the junction of the transverse process and the superior articulating process of the L3, L4 vertebra which corresponds to the fluoroscopy image of the eye of the Gm dog for the medial branches were identified. Subsequently, after local infiltration of skin with lidocaine 1% 0.2 mL at each level , a 25-gauge 3.5" Quincke-type needle was placed at the junction of the base of the transverse process and the superior articular process at the appropriate level , and the needle was advanced until the periosteum contacted, needle placement confirmed with AP and oblique fluoroscopy, 0.2 mL of Isovue 200 per level was injected which revealed no vascular uptake and after negative aspiration, 1 mL of ropivacaine 0.5% was injected at each level and the needle subsequently removed . At the end of the procedure and the needles were removed and a bandage applied after the skin was cleaned. The patient was taken to recovery room in stable condition and monitors in the recovery room for 20-30 minutes and discharged home in stable condition after discharge criteria met and patient will follow up procedure in 2 weeks EBL: Minimal COMPLICATION: None.
[2020-04-07] MEDS ORDERED: LACTATED RINGERS 1,000 ML IV ONE ×2 (07:24)
--- NOTE | 2020-04-07 07:29 | FL ---
Fluoroscopy INDICATION: Pain FINDINGS: Fluoroscopy time: 5 seconds. Images obtained: 2. IMPRESSIONS: 1. Documentation of fluoroscopy.
[2020-04-07 07:48] VITALS: BP 137/69; PULSE 64; RESP 16
[2020-04-07] MEDS ORDERED: IV FLUID CONTINUATION 850 ML IV ONE (07:55)
--- NOTE | 2020-04-12 08:58 | CDI ---
Date: 04.12.20 CDS/Licensing Registration Examiner Name: Estephanie Jon Phone: If any questions, call Shaneka Nunez [employer] at [phone] Patient Name: Mary Macdonald Admit Date 04.07.20 Discharge Date: 04.07.20 ATTENTION: The [facility] Coding Staff appreciate your assistance in clarifying documentation. Please respond to the clarification below the line at the bottom and electronically sign. The [facility] Coding staff will review the response and follow-up if needed. Please note: Queries are made part of the Legal Health Record. If you have any questions, please contact the Parcel Carrier. Dear Dr. Barrios In order to code to the greatest specificity and for the greatest reimbursement I need the following information: Please specify the laterality of the block: __left __right __bilateral Thank you for your kind consideration. MTDD
== END 2020-04-07 08:03 | disposition home or self-care (01) ==
LOC: ORPAIN 06:11 → EEVIPCON 07:00 → ORPAIN 08:03
PROVIDERS: ATTEND Anesthesiology
DX: M47.816 Spondylosis without myelopathy or radiculopathy, lumbar region (principal); K08.89 Other specified disorders of teeth and supporting structures; K08.409 Partial loss of teeth, unspecified cause, unspecified class; I10 Essential (primary) hypertension; F32.9 Major depressive disorder, single episode, unspecified; F20.9 Schizophrenia, unspecified; I67.1 Cerebral aneurysm, nonruptured; Z91.048 Other nonmedicinal substance allergy status; Z98.2 Presence of cerebrospinal fluid drainage device; Z79.899 Other long term (current) drug therapy
CPT/HCPCS: 64493; J2250; Q9966; J2795; 99152

== ENCOUNTER → 2020-06-08 | Outpatient (CLI) | payer OTHER ==
[2020-06-08 19:20] LABS: Basophils # (A) 0.03 X 10*3/uL (0.00-0.10); Basophils % (A) 0.5 %; Eosinophils # (A) 0.13 X 10*3/uL (0.04-0.35); Eosinophils % (A) 2.3 %; HCT 45.5 % (37.2-46.3); Lymphocytes # (A) 2.03 X 10*3/uL (0.90-5.00); Lymphocytes % (A) 35.3 %; MCH 28.2 pg (27.0-32.0); MCHC 30.8 g/dL (32.0-37.0); MCV 91.7 fL (80.0-97.0); Mean Platelet Volume 10.6 fL (9.5-12.2); Monocytes # (A) 0.35 X 10*3/uL (0.20-1.00); Monocytes % (A) 6.1 %; Neutrophils # (A) 3.19 X 10*3/uL (1.80-7.70); Neutrophils % (A) 55.5 %; Platelet Count 316 X 10*3/uL (140-440); RBC 4.96 X 10*6/uL (4.10-5.20); RDW 13.2 % (11.5-14.5); WBC 5.75 X 10*3/uL (4.50-10.00)
[2020-06-08 23:02] LABS: African American GFR (CKD) 107.6 (60.0-200.0); Albumin 4.8 g/dL (3.80-4.90); Albumin/Globulin Ratio 1.92 (1.60-3.17); Anion Gap 8.2 mmol/L (4.00-12.00); BUN/Creat Ratio 18.57 Ratio (12.00-20.00); Carbon Dioxide 22.8 mmol/L (21.6-31.8); Chol/HDL Ratio 3.95; Globulin 2.5 g/dL (1.6-3.3); LDL Cholesterol,Calculated 146.4 mg/dL (0.0-131.0); Non-African American GFR(CKD) 92.9 (60.0-200.0); Potassium 4.3 mmol/L (3.5-5.5); Total Bilirubin 0.3 mg/dL (0.2-1.2); Total Protein 7.3 g/dL (6.2-8.2); Uric Acid 4.5 mg/dL (2.9-7.7); VLDL Calculation 18.6 mg/dL (5.00-40.00)
[2020-06-08 23:16] LABS: Folate, Serum 14.2 ng/mL
[2020-06-08 23:27] LABS: Hepatitis B Surface Antigen Non-Reactive (Non-Reactive); Hepatitis C IgG Antibody Non-Reactive (Non-Reactive)
[2020-06-09 19:14] LABS: HIV 2 AB Non-Reactive (Non-Reactive); HIV AB P24 Non-Reactive (Non-Reactive); HIV P24 AG Non-Reactive (Non-Reactive)
== END | disposition home or self-care (01) ==
LOC: LABWHC1 08:22
PROVIDERS: ATTEND Family Medicine
DX: E78.2 Mixed hyperlipidemia (principal); I10 Essential (primary) hypertension; E55.9 Vitamin D deficiency, unspecified; G40.909 Epilepsy, unspecified, not intractable, without status epilepticus; Z71.3 Dietary counseling and surveillance; Z12.31 Encounter for screening mammogram for malignant neoplasm of breast; R87.619 Unspecified abnormal cytological findings in specimens from cervix uteri
CPT/HCPCS: 36415; 80053; 80061; 82306; 82607; 82746; 84443; 84550; 85025; 86780; 86803; 87340; 87390

== ENCOUNTER 2020-06-16 07:00 | Day surgery (SDC) | payer OTHER ==
[2020-06-14 09:27] VITALS: BMI 23.8
[~2020-06-16 07:00] MED LIST: LACTATED RINGERS 1,000 ML IV SCH
[2020-06-16 07:17] VITALS: RESP 16; TEMP 98
[2020-06-16] MEDS ORDERED: LIDOCAINE 1% (10MG/ML) FOR IV START INTRADERMA ONE (07:37)
[2020-06-16] MEDS ORDERED: MIDAZOLAM 2 MG/2 ML VIAL ONE (07:54)
[2020-06-16] MEDS ORDERED: methylPREDNISolone ACETATE 40 MG/ML 1 ML VIAL ONE (07:54)
[2020-06-16] MEDS ORDERED: fentaNYL (PF) 50 MCG/ML 2 ML AMP ONE (07:54)
[2020-06-16] MEDS ORDERED: ROPIVACAINE 5MG/ML 20ML VIAL ONE (07:54)
--- NOTE | 2020-06-16 08:11 | P.PCN ---
Date of Procedure: 06/16/20 Procedure(s) Performed: PREOPERATIVE DIAGNOSIS : 1- Lumbar spondylosis with Facet Arthropathy without myelopathy . POSTOPERATIVE DIAGNOSIS: 1- Lumbar spondylosis with Facet Arthropathy without myelopathy . PROCEDURE: Diagnostic bilateral at L2 , L3 medial branch block under fluoroscopy guidance(fluoroscopy images available in the radiology Department ) ( To target the facet joint between L3-4 level ) ANESTHESIA:, Monitored anesthesia care as per anesthesia department. EBL: Minimal COMPLICATION: None PROCEDURE INDICATION: Chronic low back pain secondary to Facet arthropathy unresponsive to conservative treatment. PROCEDURE DESCRIPTION: the patient was seen and identified in the preop holding area , risks and benefits and possible complications of the procedure and alternative were discussed with the patient, and the patient agreed to proceed with the procedure and signed the consent and vital signs monitored during the procedure and fluoroscopy was used to maximize the benefit and accuracy of the needle placement, and sedation was given to decrease patient anxiety, patient was taken to the procedure room and placed in prone position vital signs monitored in the back prepped with chlorhexidine X3 then under strict sterile technique using a right oblique fluoroscopy ,the junction of the transverse process and the superior articulating process of the right L2 , and L3 vertebra which corresponding to the fluoroscopy image of the eye of the Gm dog on the block side for the medial branches and subsequently , after local infiltration of skin and subcu tissuies with Ropivacaine 0.5 % , one mL at each level ,then 22-gauge Quincke-type needles , 2needle was used , each one of them placed at the junction of the base of the transverse process and the superior articular process at the appropriate level, and the needle was advanced until the periosteum contacted, needle placement confirmed with AP oblique and lateral view and after appropriate needle placement confirmed, and after negative aspiration for heme and CSF and there was no paresthesia 1 mL of Ropivacaine 0.5% mixed with 20 mg Depo-Medrol , then half mL injected at each level after negative aspiration the needle subsequently removed and the same procedure repeated for the left side at left side at L2 , L3 levels. At the end of the procedure and the needles removed and a bandage applied after the skin was cleaned the cleaning solution patient taken to recovery room in stable condition and monitors in the recovery room for 20-30 minutes and discharged home in stable condition after discharge criteria met and patient will follow up with the pain clinic in 2-4 weeks
[2020-06-16] MEDS ORDERED: IV FLUID CONTINUATION 1,000 ML IV ONE ×2 (08:12)
--- NOTE | 2020-06-16 08:26 | FL ---
EXAMINATION TYPE: FL guided pain mgmt statistic DATE OF EXAM: 06/16/2020 HISTORY: FACET BLOCK BILAT LUMBAR FACET BLOCK. DR. OWEN. 4 SEC FLUORO TIME.
[2020-06-16 08:31] VITALS: BP 127/85; PULSE 75
== END 2020-06-16 08:55 | disposition home or self-care (01) ==
LOC: ORPAIN 07:00
PROVIDERS: ATTEND Specialist
DX: G89.29 Other chronic pain (principal); M47.816 Spondylosis without myelopathy or radiculopathy, lumbar region; Z91.048 Other nonmedicinal substance allergy status; I10 Essential (primary) hypertension; F17.200 Nicotine dependence, unspecified, uncomplicated; Z86.73 Personal history of transient ischemic attack (TIA), and cerebral infarction without residual deficits; Z79.899 Other long term (current) drug therapy
CPT/HCPCS: 64493; J2250; J1030; J3010; J2795

== ENCOUNTER → 2020-07-18 | Outpatient (CLI) | payer OTHER ==
--- NOTE | 2020-07-21 11:10 | MM ---
Reason for exam: screening (asymptomatic). Last mammogram was performed 2 years and 2 months ago. History: Patient is postmenopausal. Family history of breast cancer in mother at age 70 and breast cancer in maternal aunt. Benign excisional biopsy of the left breast, 2017. 2 benign excisional biopsies of the right breast, 2017. Physical Findings: A clinical breast exam by your physician is recommended on an annual basis and results should be correlated with mammographic findings. MG Screening Mammo w CAD Bilateral CC and MLO view(s) were taken. Prior study comparison: May 15, 2018, bilateral MG diagnostic mammo w CAD MASSIEL. January 21, 2017, bilateral MG work up mamm w CAD BILAT. The breast tissue is heterogeneously dense. This may lower the sensitivity of mammography. Two new nodule left breast lateral anterior and medial middle depth. Previous mammotome biopsy in the right breast x 2 and in the left breast x 1. ASSESSMENT: Incomplete: need additional imaging evaluation, BI-RAD 0 RECOMMENDATION: Special view mammogram of the left breast. If lesion persists on supplemental views, image directed ultrasound is recommended. [facility] will attempt to contact patient to return for supplemental views and ultrasound if indicated.
== END | disposition home or self-care (01) ==
LOC: RADMAMWWP 13:10 → EEVIPCON 13:20
PROVIDERS: ATTEND Family Medicine
DX: Z12.31 Encounter for screening mammogram for malignant neoplasm of breast (principal); Z78.0 Asymptomatic menopausal state; Z80.3 Family history of malignant neoplasm of breast
CPT/HCPCS: 77067

== ENCOUNTER → 2020-07-19 | Outpatient (CLI) | payer OTHER ==
[2020-07-19 12:31] VITALS: BP 126/85; PULSE 72; RESP 18; TEMP 98.7
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
== END ==
LOC: PNWHC3 12:21
PROVIDERS: ATTEND Anesthesiology
DX: M47.816 Spondylosis without myelopathy or radiculopathy, lumbar region (principal); M51.36 Other intervertebral disc degeneration, lumbar region; Z91.048 Other nonmedicinal substance allergy status
CPT/HCPCS: 99211

== ENCOUNTER 2020-07-21 10:42 | Day surgery (SDC) | payer OTHER ==
[2020-07-21 12:34] VITALS: TEMP 97.2
[2020-07-21] MEDS ORDERED: LIDOCAINE 1% (10MG/ML) FOR IV START INTRADERMA ONE (12:41)
[2020-07-21] MEDS ORDERED: LIDOCAINE 1% INJ 10MG/ML (20 ML MDV) ONE (13:28)
[2020-07-21] MEDS ORDERED: PROPOFOL 10 MG/ML 20 ML VIAL IV ONE (13:28)
--- NOTE | 2020-07-21 13:36 | P.GSHP ---
History of Present Illness H&P Date: 07/21/20 Chief Complaint: Screening colonoscopy This a 65-year-old female who presents today for screening colonoscopy. Patient denies any significant GI complaints. Past Medical History Past Medical History: Hypertension, Seizure Disorder Additional Past Medical History / Comment(s): History of brain aneurysm with shunt placement, last seizure 3-4 years ago., lower back pain., Daughter, Kayla is legal guardian. History of Any Multi-Drug Resistant Organisms: None Reported Past Surgical History: No Surgical Hx Reported Additional Past Surgical History / Comment(s): brain aneurysm with shunt, pain clinic procedures. Past Anesthesia/Blood Transfusion Reactions: No Reported Reaction Past Psychological History: Depression, Schizophrenia Smoking Status: Current every day smoker Past Alcohol Use History: None Reported Additional Past Alcohol Use History / Comment(s): smokes 1 pack every 2-3 days Past Drug Use History: None Reported - Past Family History Mother Family Medical History: No Reported History Medications and Allergies Home Medications Medication Instructions Recorded Confirmed Type hydroCHLOROthiazide [Hydrodiuril] 25 mg PO DAILY #14 tab 05/21/17 07/19/20 Rx Atorvastatin [Lipitor] 40 mg PO HS 06/14/20 07/19/20 History Ergocalciferol (Vitamin D2) 1,250 mcg PO TU 06/14/20 07/19/20 History [Vitamin D2 (50,000 Iu)] amLODIPine BESYLATE 10 mg PO DAILY 06/14/20 07/19/20 History Aspirin [Adult Low Dose Aspirin EC] 81 mg PO DAILY 07/14/20 07/19/20 History Allergies Allergy/AdvReac Type Severity Reaction Status Date / Time tide Allergy Rash/Hives Uncoded 07/21/20 12:26 Surgical - Exam Vital Signs Temp Pulse Resp BP Pulse Ox 97.2 F L 61 20 147/97 97 07/21/20 12:30 07/21/20 12:30 07/21/20 12:30 07/21/20 12:30 07/21/20 12:30 - General well developed, well nourished, no distress - Eyes PERRL - ENT normal pinna - Neck no masses - Respiratory normal expansion - Cardiovascular Rhythm: regular - Abdomen Abdomen: soft, non tender Assessment and Plan Assessment: We'll perform screening colonoscopy.
--- NOTE | 2020-07-21 13:48 | P.OP ---
Date of Procedure: 07/21/20 Preoperative Diagnosis: Screening colonoscopy Postoperative Diagnosis: Normal colonoscopy Poor colonic prep Procedure(s) Performed: Colonoscopy Anesthesia: MAC Surgeon: Az Kenney Pathology: none sent Condition: stable Disposition: PACU Description of Procedure: The patient's placed on the endoscopy table in the lateral position area she received IV sedation. Digital rectal exam was performed which revealed no abnormalities. The flexible colonoscope was then placed patient anus passed throughout the entire colon. The right colon was poorly visualized secondary to a large amount of liquid stool. What was visualized appeared normal. The scope was then brought back the transverse colon, descending colon and sigmoid colon appeared normal. The rectum appeared normal.
[2020-07-21 13:51] VITALS: RESP 16
[2020-07-21 14:10] VITALS: BP 116/81; PULSE 72
== END 2020-07-21 14:29 | disposition home or self-care (01) ==
LOC: ORWHC2ENDO 10:42
PROVIDERS: ATTEND Surgery
DX: Z12.11 Encounter for screening for malignant neoplasm of colon (principal); I10 Essential (primary) hypertension; G40.909 Epilepsy, unspecified, not intractable, without status epilepticus; I67.1 Cerebral aneurysm, nonruptured; F17.210 Nicotine dependence, cigarettes, uncomplicated; E78.5 Hyperlipidemia, unspecified; Z79.899 Other long term (current) drug therapy; F32.9 Major depressive disorder, single episode, unspecified; F20.9 Schizophrenia, unspecified; Z91.048 Other nonmedicinal substance allergy status; Z86.73 Personal history of transient ischemic attack (TIA), and cerebral infarction without residual deficits
CPT/HCPCS: J2001; J2704; G0121; 45378

== ENCOUNTER → 2020-08-01 | Outpatient (CLI) | payer OTHER ==
--- NOTE | 2020-08-03 13:38 | MM ---
Reason for exam: additional evaluation requested from abnormal screening. Last mammogram was performed less than 1 month ago. History: Patient is postmenopausal. Family history of breast cancer in mother at age 70 and breast cancer in maternal aunt. Benign excisional biopsy of the left breast, 2017. 2 benign excisional biopsies of the right breast, 2017. Physical Findings: Nurse did not find any significant physical abnormalities on exam. MG Work Up Mamm w CAD LT Spot compression CC, spot compression MLO, and LM view(s) were taken of the left breast. Prior study comparison: July 18, 2020, bilateral MG screening mammo w CAD. May 15, 2018, bilateral MG diagnostic mammo w CAD MASSIEL. There are scattered fibroglandular densities. There are two masses, left outer central breast and left central breast. These results were verbally communicated with the patient and result sheet given to the patient on 08/01/20. ASSESSMENT: Incomplete: need additional imaging evaluation, BI-RAD 0 RECOMMENDATION: Ultrasound of the left breast. MULUGETA
--- NOTE | 2020-08-03 13:40 | USB ---
Reason for exam: additional evaluation requested from abnormal screening. History: Patient is postmenopausal. Family history of breast cancer in mother at age 70 and breast cancer in maternal aunt. Benign excisional biopsy of the left breast, 2017. 2 benign excisional biopsies of the right breast, 2017. US Breast Workup Limited LT Left limited breast ultrasound including focal area of concern, retroareolar and axilla demonstrates three oval, cystic lesions measuring 4 x 3 x 5mm at 3 o'clock, 6 x 2 x 4mm at 2 o'clock and 5 x 2 x 5mm at 9 o'clock. These results were verbally communicated with the patient and result sheet given to the patient on 08/01/20. ASSESSMENT: Benign, BI-RAD 2 RECOMMENDATION: Return to routine screening mammogram schedule for both breasts.
== END | disposition home or self-care (01) ==
LOC: RADMAMWWP 14:48
PROVIDERS: ATTEND Family Medicine
DX: R92.8 Other abnormal and inconclusive findings on diagnostic imaging of breast (principal); Z80.3 Family history of malignant neoplasm of breast
CPT/HCPCS: 77065

== ENCOUNTER → 2020-09-08 | Outpatient (CLI) | payer OTHER ==
[2020-09-08 14:17] VITALS: BP 128/84; PULSE 74; RESP 18; TEMP 99
--- NOTE | 2020-09-08 14:39 | P.GSHP ---
History of Present Illness H&P Date: 09/08/20 Chief Complaint: left breast ultrasound abnormality Mary is a 65-year-old -[place] female who underwent a bilateral mammogram and additional studies of the left breast in July 2020. The patient had bilateral mammogram in 6120 for which additional views of the left breast were recommended. These were performed and [id number]. This revealed 2 masses in the left breast for which an ultrasound was recommended. The ultrasound was performed on the same date revealed 2 cystic lesions. The recommendation was for repeat bilateral mammogram in 1 year. She does not feel any lumps masses or nodules for which she is concerned. She is not complaining of any nipple discharge or skin changes. She's never had any surgery on her breast. She does not complain of any recent trauma or infection in the breast. Caffeine: 3 mountain dew daily 20 oz bottles nicotine: 1 PPD chocolate: occasional Family History: mother: breast cancer at 60 maternal aunt: breast cancer Hormonal History: menarche: 14 M2, breast fed: no, first born at 17 menopause: 52 BCP: 10 years hormones: none Surgical History: Right brain aneurysm over 37 years ago D&C Medical history: HTN low potassium seizure Social history: Nicotine: One pack per day Alcohol: Negative Drugs: Negative - Constitutional Constitutional: Denies chills, Denies fever - EENT Eyes: bilateral blurred vision, denies pain Ears: deny: decreased hearing, tinnitus Ears, nose, mouth and throat: Denies headache, Denies sore throat - Breasts Breasts: bilateral: as per HPI - Cardiovascular Cardiovascular: Denies chest pain, Denies shortness of breath - Respiratory Respiratory: Reports cough - Gastrointestinal Gastrointestinal: Denies abdominal pain, Denies diarrhea, Denies nausea, Denies vomiting - Genitourinary (Female) Genitourinary: Denies dysuria, Denies hematuria - Menstruation Menstruation: Reports postmenopausal - Musculoskeletal Musculoskeletal: Denies myalgias - Integumentary Integumentary: Denies pruritus, Denies rash - Neurological Comment: L3 fracture lower back pain - Psychiatric Psychiatric: Reports anxiety - Endocrine Endocrine: Reports weight change - Hematologic/Lymphatic Comment: aspirin - Allergic/Immunologic Allergic/Immunologic: Reports as per HPI Past Medical History Past Medical History: Hypertension, Seizure Disorder Additional Past Medical History / Comment(s): History of brain aneurysm with shunt placement, last seizure 3-4 years ago., lower back pain., Daughter, Kayla is legal guardian. History of Any Multi-Drug Resistant Organisms: None Reported Past Surgical History: No Surgical Hx Reported Additional Past Surgical History / Comment(s): brain aneurysm with shunt, pain clinic procedures. Past Anesthesia/Blood Transfusion Reactions: No Reported Reaction Past Psychological History: Depression, Schizophrenia Smoking Status: Current every day smoker Past Alcohol Use History: None Reported Additional Past Alcohol Use History / Comment(s): smokes 1 pack every 2-3 days Past Drug Use History: None Reported - Past Family History Mother Family Medical History: No Reported History Medications and Allergies Home Medications Medication Instructions Recorded Confirmed Type hydroCHLOROthiazide [Hydrodiuril] 25 mg PO DAILY #14 tab 05/21/17 09/08/20 Rx Atorvastatin [Lipitor] 40 mg PO HS 06/14/20 09/08/20 History Ergocalciferol (Vitamin D2) 1,250 mcg PO TU 06/14/20 09/08/20 History [Vitamin D2 (50,000 Iu)] amLODIPine BESYLATE 10 mg PO DAILY 06/14/20 09/08/20 History Aspirin [Adult Low Dose Aspirin EC] 81 mg PO DAILY 07/14/20 09/08/20 History Allergies Allergy/AdvReac Type Severity Reaction Status Date / Time tide Allergy Rash/Hives Uncoded 09/08/20 14:17 Surgical - Exam Vital Signs Temp Pulse Resp BP Pulse Ox 99.0 F 74 18 128/84 98 09/08/20 14:15 09/08/20 14:15 09/08/20 14:15 09/08/20 14:15 09/08/20 14:15 BMI 22.8 - General no distress - Eyes normal ocular movement - ENT normal nares - Neck no masses, trachea midline - Respiratory normal respiratory effort, clear to auscultation - Cardiovascular Heart Sounds: normal: S1, S2 - Abdomen Abdomen: soft - Integumentary normal turgor - Neurologic no disoriented, no combative - Musculoskeletal normal gait - Psychiatric oriented to time, oriented to person, oriented to place, speech is normal, memory intact Breast exam: BRA: 36B inspection: Bilateral grade 2 ptosis Palpation: Right breast: Multi-positional exam fibrocystic changes, no dominant masses or nodules of concern Right axilla: No adenopathy of concern Left breast: Multi-positional exam fibrocystic changes no dominant masses or nodules of concern Left axilla: No adenopathy of concern Results Mammogram and ultrasound reviewed with Dr. Abel Assessment and Plan Assessment: Impression: HTN low potassium seizure Bilateral fibrocystic breast changes High caffeine intake Nicotine approximately 1 pack per day Plan: Repeat bilateral mammogram in 1 year Modify lifestyle decreased caffeine intake and stop nicotine Patient did have repeat examination in 6 months If patient notes anything of concern we will see her sooner At had a discussion with the patient and her daughter that the high caffeine intake in the nicotine can exacerbate fibrocystic changes in the most likely as a cause for the the cystic changes seen in the breast. The patient understands this and will attempt to modify her lifestyle. Cc: Dr. Stephanie Azul
== END | disposition home or self-care (01) ==
LOC: WWCWWP 13:57
PROVIDERS: ATTEND Surgery
DX: Z53.9 Procedure and treatment not carried out, unspecified reason (principal)

== ENCOUNTER → 2021-03-15 | Outpatient (CLI) | payer OTHER ==
[2021-03-15 14:23] VITALS: BP 146/98; PULSE 78; RESP 18; TEMP 98
--- NOTE | 2021-03-15 14:34 | P.PN ---
Subjective Progress Note Date: 03/15/21 Principal diagnosis: Fibrocystic breast changes Mary is a 65-year-old -Citizen Of [place] female who underwent a bilateral mammogram and additional studies of the left breast in July 2020. The patient had bilateral mammogram in 6120 for which additional views of the left breast were recommended. These were performed and . This revealed 2 masses in the left breast for which an ultrasound was recommended. The ultrasound was performed on the same date revealed 2 cystic lesions. The recommendation was for repeat bilateral mammogram in 1 year. She was not complaining of any lumps masses or nodules for which she was concerned. She was not complaining of any nipple discharge or skin changes. She's never had any surgery on her breast. She did not complain of any recent trauma or infection in the breast. She is seen in conjunction with her daughter who is her legal guardian. Does not complain of any new lumps masses or nodules of concern in either breast. Caffeine: 3 mountain dew daily 20 oz bottles nicotine: 1 PPD chocolate: occasional Family History: mother: breast cancer at 60 maternal aunt: breast cancer Hormonal History: menarche: 14 M2, breast fed: no, first born at 17 menopause: 52 BCP: 10 years hormones: none Surgical History: Right brain aneurysm over 37 years ago D&C Medical history: HTN low potassium seizure Social history: Nicotine: One pack per day Alcohol: Negative Drugs: Negative - Constitutional Constitutional: Denies chills, Denies fever - EENT Eyes: bilateral blurred vision, denies pain Ears: deny: decreased hearing, tinnitus Ears, nose, mouth and throat: Denies headache, Denies sore throat - Breasts Breasts: bilateral: as per HPI - Cardiovascular Cardiovascular: Denies chest pain, Denies shortness of breath - Respiratory Respiratory: Reports cough - Gastrointestinal Gastrointestinal: Denies abdominal pain, Denies diarrhea, Denies nausea, Denies vomiting - Genitourinary (Female) Genitourinary: Denies dysuria, Denies hematuria - Menstruation Menstruation: Reports postmenopausal - Musculoskeletal Musculoskeletal: Denies myalgias - Integumentary Integumentary: Denies pruritus, Denies rash - Neurological Comment: L3 fracture lower back pain - Psychiatric Psychiatric: Reports anxiety - Endocrine Endocrine: Reports weight change - Hematologic/Lymphatic Comment: aspirin - Allergic/Immunologic Allergic/Immunologic: Reports as per HPI Objective - Vital Signs Vital signs: Vital Signs Temp 98.0 F 03/15/21 14:18 Pulse 78 03/15/21 14:18 Resp 18 03/15/21 14:18 BP 146/98 03/15/21 14:18 Pulse Ox Intake & Output 03/14/21 03/15/21 03/15/21 18:59 06:59 18:59 Weight 63.503 kg - Exam BMI 24 - Constitutional General appearance: Present: cooperative - EENT Eyes: Present: EOMI ENT: Present: hearing grossly normal - Neck Neck: Present: normal ROM - Respiratory Respiratory: bilateral: CTA - Cardiovascular Rhythm: regular Heart sounds: normal: S1, S2 - Gastrointestinal General gastrointestinal: Present: soft - Integumentary Integumentary: Present: normal turgor - Musculoskeletal Musculoskeletal: Present: gait normal - Psychiatric Psychiatric: Present: A&O x's 3, appropriate affect, intact judgment & insight - Additional findings Additional findings: Breast Exam: BRA: 36C Inspection: Bilateral grade 2/3 ptosis Palpation: Right breast: Multi-positional exam fibrocystic changes no dominant masses or nodules of concern Right axilla: No adenopathy of concern Left breast: Multi-positional exam fibrocystic changes no dominant masses or nodules of concern Left axilla: No adenopathy of concern Assessment and Plan Assessment: Impression: Fibrocystic breast changes no discrete dominant masses or nodules of concern which would warrant interventional biopsy Plan: Bilateral mammogram in July 2021 with appointment at that time CC: Dr. Ladonna Zheng
== END ==
LOC: WWCWWP 14:06
PROVIDERS: ATTEND Surgery
DX: Z53.9 Procedure and treatment not carried out, unspecified reason (principal)

== ENCOUNTER → 2021-08-03 | Outpatient (CLI) | payer OTHER | END | disposition home or self-care (01) | LOC: RADMAMWWP 09:10 | PROVIDERS: ATTEND Surgery | DX: Z12.31 Encounter for screening mammogram for malignant neoplasm of breast (principal) | CPT/HCPCS: 77067 ==

== ENCOUNTER → 2021-08-23 | Outpatient (CLI) | payer OTHER ==
--- NOTE | 2021-08-23 09:40 | MM ---
Reason for Exam: Additional evaluation requested from abnormal screening. Last screening mammogram was performed less than 1 month ago. Patient History: Menarche at age 14. First Full-Term at age 17. Postmenopausal. 2017, Benign Excisional Biopsy on the left side. 2017, Benign Excisional Biopsy on the right side. 2017, Benign Excisional Biopsy on the right side. Maternal aunt had breast cancer, age 60. Mother had breast cancer, age 70. Risk Values: Rosi 5 year model risk: 4.5%. NCI Lifetime model risk: 17.1%. Prior Study Comparison: 01/15/2017 Bilateral Screening Mammogram, [facility]. 01/21/2017 Bilateral Diagnostic Mammogram, [facility]. 05/15/2018 Bilateral Diagnostic Mammogram, [facility]. 07/18/2020 Bilateral Screening Mammogram, [facility]. 08/01/2020 Left Diagnostic Mammogram, [facility]. 08/03/2021 Bilateral MG screening mammo w CAD, [facility]. Tissue Density: Right: The breast tissue is heterogeneously dense. This may lower the sensitivity of mammography. Findings: Analyzed By CAD. Nodular density right breast is less conspicuous on spot compression imaging. Precautionary six-month follow-up of the right breast is recommended. Overall Assessment: Probably benign, BI-RAD 3 Management: Diagnostic Mammogram of the right breast in 6 months. A clinical breast exam by your physician is recommended on an annual basis and results should be correlated with mammographic findings. This exam should not preclude additional follow-up of suspicious palpable abnormalities. Results were given to the patient verbally at the time of exam. Electronically signed and approved by: Pedro Zendejas M.D. Radiologis
== END | disposition home or self-care (01) ==
LOC: RADMAMWWP 09:15
PROVIDERS: ATTEND Family Medicine
DX: R92.8 Other abnormal and inconclusive findings on diagnostic imaging of breast (principal)
CPT/HCPCS: 77065; G0279; 77061

== ENCOUNTER → 2022-01-21 | Outpatient (CLI) | payer OTHER ==
--- NOTE | 2022-01-21 09:07 | CTL ---
EXAMINATION TYPE: CT Low Dose Lung DATE OF EXAM ORDERED: 01/21/2022 HISTORY: . Lung cancer screening CT DLP: [address] CTDI: 1.68 mGy Automated exposure control for dose reduction was used. SCREENING VISIT: COMPARISON: 04/06/2019 TECHNIQUE: Low dose computed tomography scan was performed through the chest at 1 mm thick sections a nd reconstructed images in multiple planes at 1 mm and [address] DIAGNOSTIC QUALITY: Satisfactory FINDINGS: Biapical pleural thickening. There are 2 mm subpleural nodule seen in the bilateral lung apices which have a benign appearance. There is an additional left upper lobe nodule measuring 4 mm axial image 5 1. Mild emphysematous changes are seen. There is no evidence of focal pneumonia or pleural effusion. No pneumothorax. No interstitial edema. Groundglass changes seen posteriorly are most typical dependent atelectasis. Atherosclerotic changes aorta. There is coronary artery calcification. Ascending aorta measures a max imal dimension of 3.6 cm. Heart size normal. No pathologic adenopathy by noncontrast technique. IMPRESSION: 1. COPD with sub-5 mm pulmonary nodules which have a benign appearance. 2. Coronary artery calcification. CT LUNG RAD AND CT CHEST RECOMMENDATION: Lung-Rad 2 Benign Appearance or Behavior: Continue annual sc reening with LDCT in 12 months. S Modifier (other clinically significant findings): S
== END | disposition home or self-care (01) ==
LOC: RADCTMAIN 08:37
PROVIDERS: ATTEND Family Medicine
DX: Z12.2 Encounter for screening for malignant neoplasm of respiratory organs (principal); J44.9 Chronic obstructive pulmonary disease, unspecified; I25.10 Atherosclerotic heart disease of native coronary artery without angina pectoris; R91.8 Other nonspecific abnormal finding of lung field; Z87.891 Personal history of nicotine dependence
CPT/HCPCS: 71271

== ENCOUNTER → 2022-05-13 | Outpatient (CLI) | payer OTHER ==
--- NOTE | 2022-05-13 13:41 | MM ---
Reason for Exam: Follow-up at short interval from prior study. Last screening mammogram was performed 9 month(s) ago. Patient History: Menarche at age 14. First Full-Term at age 17. Postmenopausal. 2017, Benign Excisional Biopsy on the left side. 2017, Benign Excisional Biopsy on the right side. 2017, Benign Excisional Biopsy on the right side. Maternal aunt had breast cancer, age 60. Mother had breast cancer, age 70. Risk Values: Rsoi 5 year model risk: 4.5%. NCI Lifetime model risk: 17.1%. Prior Study Comparison: 01/15/2017 Bilateral Screening Mammogram, [facility]. 01/21/2017 Bilateral Diagnostic Mammogram, [facility]. 05/15/2018 Bilateral Diagnostic Mammogram, [facility]. 07/18/2020 Bilateral Screening Mammogram, [facility]. 08/01/2020 Left Diagnostic Mammogram, [facility]. 08/03/2021 Bilateral MG screening mammo w CAD, [facility]. 08/23/2021 Right MG 3D work up w/cad RT, [facility]. Tissue Density: Right: The breast tissue is heterogeneously dense. This may lower the sensitivity of mammography. Findings: Analyzed By CAD. Stable chronic nodularity right upper outer quadrant right breast. 10 mm nodule at the approximate 7 to 8 o'clock position right breast 8 cm from the nipple. Ultrasound is recommended. Overall Assessment: Incomplete: need additional imaging evaluation, BI-RAD 0 Management: Diagnostic Breast Ultrasound of the right breast. A clinical breast exam by your physician is recommended on an annual basis and results should be correlated with mammographic findings. This exam should not preclude additional follow-up of suspicious palpable abnormalities. Results were given to the patient verbally at the time of exam. Electronically signed and approved by: Pedro Zendejas M.D. Radiologis
--- NOTE | 2022-05-13 14:49 | USB ---
Reason for Exam: Clinical finding. Patient History: Menarche at age 14. First Full-Term at age 17. Postmenopausal. 2017, Benign Excisional Biopsy on the left side. 2017, Benign Excisional Biopsy on the right side. 2017, Benign Excisional Biopsy on the right side. Maternal aunt had breast cancer, age 60. Mother had breast cancer, age 70. Risk Values: Rosi 5 year model risk: 4.5%. NCI Lifetime model risk: 17.1%. Technique: Method: Targeted. Prior Study Comparison: 08/01/2020 Left Diagnostic Mammogram, [facility]. 08/03/2021 Bilateral MG screening mammo w CAD, [facility]. 08/23/2021 Right MG 3D work up w/cad RT, [facility]. Findings: The lower outer quadrant of the right breast, the axilla of the right breast and the retroareolar of the right breast were scanned. Elongated hypoechoic structure seen at the right o'clock position measuring 9 x 3 mm may reflect a cyst complex cyst. Six-month follow-up is advised.. Overall Assessment: Probably benign, BI-RAD 3 Management: Diagnostic Breast Ultrasound of the right breast. A clinical breast exam by your physician is recommended on an annual basis and results should be correlated with mammographic findings. This exam should not preclude additional follow-up of suspicious palpable abnormalities. Results were given to the patient verbally at the time of exam. Electronically signed and approved by: Pedro Zendejas M.D. Radiologis
== END | disposition home or self-care (01) ==
LOC: RADMAMWWP 12:59
PROVIDERS: ATTEND Family Medicine
DX: R92.8 Other abnormal and inconclusive findings on diagnostic imaging of breast (principal); Z78.0 Asymptomatic menopausal state; Z80.3 Family history of malignant neoplasm of breast
CPT/HCPCS: 77065

== ENCOUNTER → 2022-06-20 | Outpatient (CLI) | payer OTHER ==
[2022-06-20 09:21] VITALS: BP 143/84; PULSE 59; RESP 17; TEMP 97.7
--- NOTE | 2022-06-20 09:34 | P.PN ---
Subjective Progress Note Date: 06/20/22 Progress Note Date: 03/15/21 Principal diagnosis: Fibrocystic breast changes Mary is a 65-year-old -[place] female who underwent a bilateral mammogram and additional studies of the left breast in July 2020. The patient had bilateral mammogram in 6120 for which additional views of the left breast were recommended. These were performed [place] [id number]. This revealed 2 masses in the left breast for which an ultrasound was recommended. The ultrasound was performed on the same date revealed 2 cystic lesions. The recommendation was for repeat bilateral mammogram in 1 year. She was not complaining of any lumps masses or nodules for which she was concerned. She was not complaining of any nipple discharge or skin changes. She's never had any surgery on her breast. She did not complain of any recent trauma or infection in the breast. She is seen in conjunction with her daughter who is her legal guardian. Does not complain of any new lumps masses or nodules of concern in either breast. 06-20-22 The patient is a 66 year old -[place] female whose last bilateral mammogram was in August 03 2021. Right breast diagnostic mammogram was done on 08-23-21 and a repeat right breast evaluation in 6 months was recommended. Repeat evaluation of the right breast was done on 05-13-22. A mammogram and ultrasound were preformed and the patient was noted to have a ? complex cyst in the right breast. An ultrasound in 6 months was recommended. She is due for a left breast mammogram in July 2022. She does not complain of any new lumps masses or nodules of concern in either breast. She is seen in conjunction with her daughter, who is her legal guardian. 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 D&C Medical history: HTN low potassium seizure Social history: Nicotine: One pack per day Alcohol: Negative Drugs: Negative - Constitutional Constitutional: Denies chills, Denies fever - EENT Eyes: bilateral blurred vision, denies pain Ears: deny: decreased hearing, tinnitus Ears, nose, mouth and throat: Denies headache, Denies sore throat - Breasts Breasts: bilateral: as per HPI - Cardiovascular Cardiovascular: Denies chest pain, Denies shortness of breath - Respiratory Respiratory: Reports cough - Gastrointestinal Gastrointestinal: Denies abdominal pain, Denies diarrhea, Denies nausea, Denies vomiting - Genitourinary (Female) Genitourinary: Denies dysuria, Denies hematuria - Menstruation Menstruation: Reports postmenopausal - Musculoskeletal Musculoskeletal: Denies myalgias - Integumentary Integumentary: Denies pruritus, Denies rash - Neurological Comment: L3 fracture lower back pain - Psychiatric Psychiatric: Reports anxiety - Endocrine Endocrine: Reports weight change - Hematologic/Lymphatic Comment: aspirin - Allergic/Immunologic Allergic/Immunologic: Reports as per HPI Objective - Vital Signs Vital signs: Intake & Output 06/19/22 06/20/22 06/20/22 18:59 06:59 18:59 Weight 62.596 kg - Constitutional General appearance: Present: cooperative - EENT Eyes: Present: EOMI ENT: Present: hearing grossly normal - Neck Neck: Present: normal ROM - Respiratory Respiratory: bilateral: CTA - Cardiovascular Rhythm: regular Heart sounds: normal: S1, S2 - Integumentary Integumentary: Present: normal turgor - Musculoskeletal Musculoskeletal: Present: gait normal - Psychiatric Psychiatric: Present: A&O x's 3, appropriate affect, intact judgment & insight - Additional findings Additional findings: Breast Exam: BRA: 36C Inspection: Bilateral grade 2/3 ptosis Palpation: Right breast: Multi-positional exam fibrocystic changes no dominant masses or nodules of concern Right axilla: No adenopathy of concern Left breast: Multi-positional exam fibrocystic changes no dominant masses or nodules of concern Left axilla: No adenopathy of concern Assessment and Plan Assessment: Impression: Fibrocystic breast changes Recent right breast mammogram and ultrasound BIRADS 3 Patient due for left breast mammogram in July 2022 Plan: Patient will have left breast mammogram in July with appointment at that time Patient to have right breast ultrasound repeated in 6 months with appointment at that time Patient will call sooner any questions or concerns Cc: Dr. Zheng
== END ==
LOC: WWCWWP 09:08
PROVIDERS: ATTEND Surgery
DX: N60.11 Diffuse cystic mastopathy of right breast (principal); I10 Essential (primary) hypertension; N60.02 Solitary cyst of left breast; Z80.3 Family history of malignant neoplasm of breast; Z91.048 Other nonmedicinal substance allergy status

== ENCOUNTER → 2023-08-15 | Outpatient (CLI) | payer MEDICARE, OTHER ==
--- NOTE | 2023-08-20 14:08 | CTL ---
EXAMINATION TYPE: CT Low Dose Lung DATE OF EXAM ORDERED: 08/15/2023 COMPARISON: HISTORY: . Low Dose CT Lung Screening CT DLP: 40.[address] CTDI: 1.1 mGy IV CONTRAST USED: None. SCREENING VISIT: First visit COMPARISON: 01/21/2022 TECHNIQUE: Low dose computed tomography scan was performed through the chest at 1 millimeter thick se ctions and reconstructed images in the coronal plane at [address] DIAGNOSTIC QUALITY: Satisfactory FINDINGS: LUNG NODULES: Not presentLeft lung: no nodules identified.Right lung: no nodules identified. LUNGS: COPD: Severity: None Fibrosis: Severity:None Lymph nodes: None Other findings: None RIGHT PLEURAL SPACE: Effusion: None Calcification: None Thickening: None Pneumothorax: None LEFT PLEURAL SPACE: Effusion: None Calcification: None Thickening: None Pneumothorax: None HEART: Heart Size: Mildly enlarged Coronary calcification: Mild Pericardial effusion: None OTHER FINDINGS: Upper abdomen: No significant abnormality Bony thorax: Degenerative changes Supraclavicular region: No significant abnormalityOther: No significant abnormalityI IMPRESSION: No concerning pulmonary nodules or [address] CHEST RECOMMENDATION: Follow-up screening in one year CT LUNG RAD: LUNG RAD CATEGORY category 1 negative
== END | disposition home or self-care (01) ==
LOC: RADCTMAIN 10:00
PROVIDERS: ATTEND Family Medicine
DX: Z12.2 Encounter for screening for malignant neoplasm of respiratory organs (principal); F17.210 Nicotine dependence, cigarettes, uncomplicated; J44.9 Chronic obstructive pulmonary disease, unspecified; I71.21 Aneurysm of the ascending aorta, without rupture
CPT/HCPCS: 71271

== ENCOUNTER → 2023-08-28 | Outpatient (CLI) | payer MEDICARE, OTHER ==
--- NOTE | 2023-08-28 08:05 | MM ---
Reason for Exam: Follow-up at short interval from prior study. Last mammogram was performed 2 year(s) and 1 month(s) ago. Patient History: Menarche at age 14. First Full-Term at age 17. Postmenopausal. 2017, Benign Excisional Biopsy on the left side. 2017, Benign Excisional Biopsy on the right side. 2017, Benign Excisional Biopsy on the right side. Maternal aunt had breast cancer, age 60. Mother had breast cancer, age 70. Risk Values: Rosi 5 year model risk: 2.9%. NCI Lifetime model risk: 9.6%. Prior Study Comparison: 08/01/2020 Left Diagnostic Mammogram, [facility]. 08/01/2020 Left Diagnostic Ultrasound, [facility]. 08/03/2021 Bilateral MG screening mammo w CAD, [facility]. 08/23/2021 Right MG 3D work up w/cad RT, [facility]. 05/13/2022 Right US breast limited RT, [facility]. 05/13/2022 Right MG diagnostic mammo RT w CAD, [facility]. Tissue Density: The breasts are heterogeneously dense, which may obscure small masses. Findings: Analyzed By CAD. The pattern is symmetrical. 4 markers are present prior biopsies. There is increasing heterogenous calcification upper outer right breast. Recommend stereotactic core biopsy for histologic diagnosis. Left breast:No suspicious groups of microcalcifications, spiculated or lobular masses, architectural distortion or other secondary signs of malignancy are mammographically apparent. Overall Assessment: Incomplete: need additional imaging evaluation, BI-RAD 0 Management: Diagnostic Breast Ultrasound of both breasts. A negative mammogram report should not preclude additional follow up of suspicious palpable abnormalities. Patient should continue monthly self breast exam. A clinical breast exam by your physician is recommended on an annual basis and results should be correlated with mammographic findings. Note on Rosi scores and lifetime risk: 1. A Rosi score greater than 3% is considered moderate risk. If this is the case, consider specialist referral to assess eligibility for a risk reducing agent. 2. If overall lifetime risk for the development of breast cancer is 20% or higher, the patient may qualify for future screening with alternating mammogram and breast MRI. Electronically signed and approved by: Sal Blanca D.O. Radiologis
--- NOTE | 2023-08-28 08:52 | USB ---
Reason for Exam: Additional evaluation requested from abnormal screening. Patient History: Menarche at age 14. First Full-Term at age 17. Postmenopausal. 2017, Benign Excisional Biopsy on the left side. 2017, Benign Excisional Biopsy on the right side. 2017, Benign Excisional Biopsy on the right side. Maternal aunt had breast cancer, age 60. Mother had breast cancer, age 70. Risk Values: Rosi 5 year model risk: 2.9%. NCI Lifetime model risk: 9.6%. Technique: Method: Whole Breast Handheld. Prior Study Comparison: 08/03/2021 Bilateral MG screening mammo w CAD, [facility]. 08/23/2021 Right MG 3D work up w/cad RT, [facility]. 05/13/2022 Right MG diagnostic mammo RT w CAD, [facility]. Findings: The whole breast of both breasts, the axilla of both breasts and the retroareolar of both breasts were scanned. At the left breast to o'clock position there is an mildly lobular heterogenous hypoechoic area measuring 0.7 x 0.4 x 0.9 cm. This is not been identified previously. Ultrasound-guided core biopsy is recommended. There are additional left breast findings including what may be a small complex cyst too small to classify measured 0.5 x 0.3 x 0.6 cm 3:00 position 1 cm from the nipple. Left axillary lymph node is present Additional lesions are within the right breast including a 1.0 x 0.3 x 0.5 cm hypoechoic oval area cm area 8:00 position 4 cm from the nipple which was present previously and appears stable. And a 0.3 x 0.5 x 0.2 cm simple appearing cyst 7:00 position 1 cm from the nipple. Overall Assessment: Suspicious, BI-RAD 4 Management: Ultrasound Core Biopsy of the left breast. A clinical breast exam by your physician is recommended on an annual basis and results should be correlated with mammographic findings. This exam should not preclude additional follow-up of suspicious palpable abnormalities. Results were given to the patient verbally at the time of exam. Electronically signed and approved by: Sal Blanca D.O. Radiologis
== END | disposition home or self-care (01) ==
LOC: RADMAMWWP 07:15
PROVIDERS: ATTEND Family Medicine
DX: R92.8 Other abnormal and inconclusive findings on diagnostic imaging of breast (principal); R92.333 Mammographic heterogeneous density, bilateral breasts; Z78.0 Asymptomatic menopausal state; Z80.3 Family history of malignant neoplasm of breast
CPT/HCPCS: 77066; 76641; G0279; 77062

== ENCOUNTER → 2023-09-15 | Day surgery (SDC) | payer MEDICARE, OTHER ==
[2023-09-15 07:38] VITALS: RESP 16
[2023-09-15] MEDS: ALPRAZolam 0.25 MG TAB PO PRN (07:43)
[2023-09-15 09:10] VITALS: BP 156/85; PULSE 58; TEMP 98.2
--- NOTE | 2023-10-15 08:59 | MM ---
Risk Values: Rosi 5 year model risk: 2.9%. NCI Lifetime model risk: 9.6%. Prior Study Comparison: 08/23/2021 Right MG 3D work up w/cad RT, [facility]. 05/13/2022 Right MG diagnostic mammo RT w CAD, [facility]. 08/28/2023 Bilateral MG 3D diag mammo w/cad MASSIEL, [facility]. Pathology Description: Location: middle. Needle Type: Eviva Cores: 5 Skin Nicks: 2 Gauge: 9 The microcalcifications in question within the right breast were targeted by the undersigned. Procedure was performed by the undersigned. Informed consent was obtained and all of the patients questions were answered. The standard sterile technique was utilized and appropriate local anesthesia was obtained with 1% lidocaine. Mammotome probe was advanced and multiple core samples were obtained and sent to pathology for interpretation. Microclip marker was deployed and demonstrates some migration medially. Post procedural mammogram demonstrates appropriate deployment of radiopaque clip marker. The patient tolerated the procedure well and left the department in stable condition. Pathology results are pending. Impression: Successful stereotactic core biopsy right breast. Clip migration is noted. Pathology Results: Result: Benign, Fibroadenomatoid hyperplasia. Pathology and radiology were reviewed. Findings are concordant. RIGHT BREAST, STEREOTACTIC NEEDLE CORE BIOPSY: Fibroadenomatoid hyperplasia with calcifications and background fibrocystic changes. Overall Assessment: Benign Management: Diagnostic Mammogram of the right breast in 6 months. Electronically signed and approved by: Pedro Zendejas M.D. Radiologis
== END ==
LOC: RADMAMWWP 07:14
PROVIDERS: ATTEND Family Medicine
DX: R92.8 Other abnormal and inconclusive findings on diagnostic imaging of breast
CPT/HCPCS: 88305; 19081; A4648; J2001

== ENCOUNTER → 2023-09-15 | Day surgery (SDC) | payer MEDICARE, OTHER ==
--- NOTE | 2023-10-15 08:58 | USB ---
Risk Values: Rosi 5 year model risk: 2.9%. NCI Lifetime model risk: 9.6%. Findings: Biopsy was discontinued given poor visualization of the area of concern. Precautionary six-month follow-up is recommended. IMPRESSION: 1. Probably benign Recommendation: 6 month follow-up of the left breast. Management: Diagnostic Mammogram of the left breast in 6 months. Electronically signed and approved by: Pedro Zendejas M.D. Radiologis
== END ==
LOC: RADUSWWP 07:10
PROVIDERS: ATTEND Family Medicine
DX: Z53.8 Procedure and treatment not carried out for other reasons (principal)

== ENCOUNTER → 2023-10-30 | Outpatient (CLI) | payer MEDICARE, OTHER ==
--- NOTE | 2023-10-30 09:53 | P.PN ---
Subjective Progress Note Date: 10/30/23 Principal diagnosis: fibrocystic breast disease Patient status post stero biopsy of the right breast on 09-15-23: pathology benign concordant cancelled left breast ultrasound core biopsy by DR. Mi 09-15-23 6 month follow up recommended She tolerated the biopsy without difficulty Objective - Constitutional General appearance: Present: cooperative - EENT Eyes: Present: EOMI ENT: Present: hearing grossly normal - Neck Neck: Present: normal ROM - Respiratory Respiratory: bilateral: CTA - Cardiovascular Heart sounds: normal: S1, S2 - Integumentary Integumentary: Present: normal turgor - Musculoskeletal Musculoskeletal: Present: gait normal - Psychiatric Psychiatric Comment(s): memory loss as per patient - Additional findings Additional findings: Breast Exam: bilateral grade 2 ptosis palpation: right breast: no masses right axilla: no nodes of concern left breast: no masses left axilla: no nodes of concern Assessment and Plan Assessment: Impression: fibrocystic breast changes Plan: bilateral mammogrma in 6 months, ultrasound left breast 6 months follow up here in 6 months CC: Dr. Zheng
[2023-10-30 10:54] VITALS: BP 134/90; PULSE 67; RESP 16; TEMP 97.9
== END ==
LOC: WWCWWP 09:06
PROVIDERS: ATTEND Surgery
DX: N60.19 Diffuse cystic mastopathy of unspecified breast (principal); Z88.8 Allergy status to other drugs, medicaments and biological substances

== ENCOUNTER → 2024-05-18 | Outpatient (CLI) | payer MEDICARE, OTHER ==
--- NOTE | 2024-05-18 10:51 | MM ---
Reason for Exam: Follow-up at short interval from prior study. Last screening mammogram was performed 9 month(s) ago. Patient History: Menarche at age 14. First Full-Term at age 17. Postmenopausal. Previous Hyperplasia w/o Atypia at age 68. 09/15/2023, Benign MG stereo VAD BX RT on the right side. 2017, Benign Excisional Biopsy on the left side. 2017, Benign Excisional Biopsy on the right side. 2017, Benign Excisional Biopsy on the right side. 09/15/2023, US discontinued breast bx LT on the left side. Maternal aunt had breast cancer, age 60. Mother had breast cancer, age 70. Risk Values: Rosi 5 year model risk: 2.9%. NCI Lifetime model risk: 9.6%. Prior Study Comparison: 05/15/2018 Bilateral Diagnostic Mammogram, [facility]. 08/03/2021 Bilateral MG screening mammo w CAD, [facility]. 08/23/2021 Right MG 3D work up w/cad RT, [facility]. 05/13/2022 Right MG diagnostic mammo RT w CAD, [facility]. 08/28/2023 Bilateral MG 3D diag mammo w/cad MASSIEL, [facility]. Tissue Density: The breasts are heterogeneously dense, which may obscure small masses. Findings: Analyzed By CAD. Chronic nodularity is seen bilaterally without new lesions seen. Multiple clips are noted from prior biopsies. Ultrasound recommended for discontinued biopsy on the left approximately 9 months ago. Overall Assessment: Incomplete: need additional imaging evaluation, BI-RAD 0 Management: Diagnostic Breast Ultrasound of the left breast. . Results were given to the patient verbally at the time of exam. Patient should continue monthly self-breast exams. A clinical breast exam by your physician is recommended on an annual basis. This exam should not preclude additional follow-up of suspicious palpable abnormalities. Note on Rosi scores and lifetime risk: 1. A Rosi score greater than 3% is considered moderate risk. If this is the case, consider specialist referral to assess eligibility for a risk reducing agent. 2. If overall lifetime risk for the development of breast cancer is 20% or higher, the patient may qualify for future screening with alternating mammogram and breast MRI. [facility], , 05/18/2024 10:47 AM. Electronically signed and approved by: Pedro Zendejas M.D. Radiologis
--- NOTE | 2024-05-18 11:02 | USB ---
Reason for Exam: Follow-up at short interval from prior study. Patient History: Menarche at age 14. First Full-Term at age 17. Postmenopausal. Previous Hyperplasia w/o Atypia at age 68. 09/15/2023, Benign MG stereo VAD BX RT on the right side. 2016, Benign Excisional Biopsy on the left side. 2017, Benign Excisional Biopsy on the right side. 2017, Benign Excisional Biopsy on the right side. 09/15/2023, US discontinued breast bx LT on the left side. Maternal aunt had breast cancer, age 60. Mother had breast cancer, age 70. Risk Values: Rosi 5 year model risk: 2.9%. NCI Lifetime model risk: 9.6%. Technique: Method: Targeted. Prior Study Comparison: 08/23/2021 Right MG 3D work up w/cad RT, [facility]. 05/13/2022 Right MG diagnostic mammo RT w CAD, [facility]. 08/28/2023 Bilateral MG 3D diag mammo w/cad [facility]SIEL, [facility]. Findings: The upper outer quadrant of the left breast, the axilla of the left breast and the retroareolar of the left breast were scanned. No solid or cystic masses are identified. Overall Assessment: Benign, BI-RAD 2 Management: Screening Mammogram of both breasts in 1 year. A clinical breast exam by your physician is recommended on an annual basis and results should be correlated with mammographic findings. This exam should not preclude additional follow-up of suspicious palpable abnormalities. Results were given to the patient verbally at the time of exam. [facility], , 05/18/2024 10:58 AM. Electronically signed and approved by: Pedro Zendejas M.D. Radiologis
== END | disposition home or self-care (01) ==
LOC: RADMAMWWP 10:20
PROVIDERS: ATTEND Surgery
DX: R92.8 Other abnormal and inconclusive findings on diagnostic imaging of breast (principal); R92.333 Mammographic heterogeneous density, bilateral breasts; Z78.0 Asymptomatic menopausal state; Z80.3 Family history of malignant neoplasm of breast
CPT/HCPCS: 77066; 76642; G0279; 77062

== ENCOUNTER → 2024-05-27 | Outpatient (CLI) | payer MEDICARE, OTHER ==
[2024-05-27 13:58] VITALS: BP 159/93; PULSE 96; RESP 16; TEMP 97.8
--- NOTE | 2024-05-27 14:15 | P.PN ---
Subjective Progress Note Date: 05/27/24 Principal diagnosis: fibrocystic breast disease 05-27-24 Progress Note Date: Principal diagnosis: 03-15-21 Fibrocystic breast changes Mary is a 65-year-old -[place] female who underwent a bilateral mammogram and additional studies of the left breast in July 2020. The patient had bilateral mammogram in 6120 for which additional views of the left breast were recommended. These were performed and . This revealed 2 masses in the left breast for which an ultrasound was recommended. The ultrasound was performed on the same date revealed 2 cystic lesions. The recommendation was for repeat bilateral mammogram in 1 year. She was not complaining of any lumps masses or nodules for which she was concerned. She was not complaining of any nipple discharge or skin changes. She's never had any surgery on her breast. She did not complain of any recent trauma or infection in the breast. She is seen in conjunction with her daughter who is her legal guardian. Does not complain of any new lumps masses or nodules of concern in either breast. 06-20-22 The patient is a 66 year old -[place] female whose last bilateral mammogram was in August 03 2021. Right breast diagnostic mammogram was done on 08-23-21 and a repeat right breast evaluation in 6 months was recommended. Repeat evaluation of the right breast was done on 05-13-22. A mammogram and ultrasound were preformed and the patient was noted to have a ? complex cyst in the right breast. An ultrasound in 6 months was recommended. She is due for a left breast mammogram in July 2022. She does not complain of any new lumps masses or nodules of concern in either breast. She is seen in conjunction with her daughter, who is her legal guardian. 05-27-24 The patient underwent a stero biopsy on 09-15-23 which was benign concordant, she had a left breast ultrasound core biopsy cancelled by Dr. Mi. Bilateral mammogram and left breast ultrasound on 05-18-24, BIRAD 2 bilateral mammogram in 1 year. Complaining of any new lumps masses or nodules of concern in either breast. She is not complaining of any nipple discharge or skin changes. She has not had any rash on her breast. 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 D&C Medical history: HTN low potassium seizure Social history: Nicotine: One pack per day Alcohol: Negative Drugs: Negative - Constitutional Constitutional: Denies chills, Denies fever - EENT Eyes: bilateral blurred vision, denies pain Ears: deny: decreased hearing, tinnitus Ears, nose, mouth and throat: Denies headache, Denies sore throat - Breasts Breasts: bilateral: as per HPI - Cardiovascular Cardiovascular: Denies chest pain, Denies shortness of breath - Respiratory Respiratory: Reports cough - Gastrointestinal Gastrointestinal: Denies abdominal pain, Denies diarrhea, Denies nausea, Denies vomiting - Genitourinary (Female) Genitourinary: Denies dysuria, Denies hematuria - Menstruation Menstruation: Reports postmenopausal - Musculoskeletal Musculoskeletal: Denies myalgias - Integumentary Integumentary: Denies pruritus, Denies rash - Neurological Comment: L3 fracture lower back pain - Psychiatric Psychiatric: Reports anxiety - Endocrine Endocrine: Reports weight change - Hematologic/Lymphatic Comment: aspirin - Allergic/Immunologic Allergic/Immunologic: Reports as per HPI Objective - Vital Signs Vital signs: Vital Signs Temp 97.8 F 05/27/24 13:55 Pulse 96 05/27/24 13:55 Resp 16 05/27/24 13:55 BP 159/93 05/27/24 13:55 Pulse Ox 95 05/27/24 13:55 FiO2 Intake & Output 05/26/24 05/27/24 05/27/24 18:59 06:59 18:59 Weight 63.503 kg - Constitutional General appearance: Present: cooperative - EENT Eyes: Present: EOMI ENT: Present: hearing grossly normal - Neck Neck: Present: normal ROM - Respiratory Respiratory: bilateral: CTA - Cardiovascular Rhythm: regular Heart sounds: normal: S1, S2 - Integumentary Integumentary: Present: normal turgor - Musculoskeletal Musculoskeletal: Present: gait normal - Psychiatric Psychiatric: Present: A&O x's 3, appropriate affect, intact judgment & insight - Additional findings Additional findings: Breast Exam: BRA: 36C Inspection: Bilateral grade 2/3 ptosis Palpation: Right breast: Multi-positional exam fibrocystic changes no dominant masses or nodules of concern Right axilla: No adenopathy of concern Left breast: Multi-positional exam fibrocystic changes no dominant masses or nodules of concern Left axilla: No adenopathy of concern Assessment and Plan Assessment: Impression: Fibrocystic breast changes Bilateral Mammogram and left breast ultrasound 4 1 25 BI-RADS 2 Plan: Bilateral mammogram in 1 year with physician exam at that time Patient to follow-up sooner any questions or concerns Cc: Dr. Zheng
== END ==
LOC: WWCWWP 13:11
PROVIDERS: ATTEND Surgery
DX: N60.11 Diffuse cystic mastopathy of right breast (principal); Z88.8 Allergy status to other drugs, medicaments and biological substances

== ENCOUNTER → 2024-09-10 | Outpatient (CLI) | payer MEDICARE, OTHER ==
[2024-09-10 10:11] LABS: African American GFR (CKD) >90 (>60 ml/min/1.73 sqM); Blood Urea Nitrogen 11 mg/dL (7-17); Non-African American GFR(CKD) 89 (>60 ml/min/1.73 sqM)
--- NOTE | 2024-09-11 02:51 | CT ---
EXAMINATION TYPE: CT angio head DATE OF EXAM: 09/10/2024 11:00 AM COMPARISON: None. CLINICAL INDICATION: Female, 69 years old with history of R41.3 memory loss, memory loss TECHNIQUE: CTA scan is performed with axial images are obtained, coronal and sagittal reformatted niru ges are reviewed. MIP images created on a separate workstation and submitted for review. 3-D reconstr ucted images are created on an independent workstation and reviewed. Source images are reviewed. CARMEN CET criteria was used in interpretation of this exam? Contrast used:100ml mL of Isovue 370 with IV Contrast, (none if empty) Oral contrast used: (none if empty) CT DLP: 2309 mGycm, Automated exposure control for dose reduction was used. FINDINGS: Cervical of [place]: Vertebral basilar system appears normal. Posterior cerebral vasculature is unrema rkable. Internal carotid arteries bifurcate normally into A1 and M1 segments. A2 segments are normal. The anterior communicating artery is patent. Posterior communicating arteries not clearly identified. There may be a patent right posterior commun icating artery present. Other: Three-D reconstructed images through the [place] appear within normal limits. Note is made of shunt catheters within the brain. IMPRESSION: 1. No acute vascular abnormality of the [place]. [facility], Workstation: [facility], 09/11/2024 2:49 AM
== END | disposition home or self-care (01) ==
LOC: EEVIPCON 09:14 → RADCTMAIN 09:14
PROVIDERS: ATTEND Psychiatry & Neurology Neurology
DX: R41.3 Other amnesia (principal); I72.9 Aneurysm of unspecified site
CPT/HCPCS: 82565; 84520; 70496; 36415; Q9967